=== PATIENT | male | born 1930 | race Caucasian/White ===

== ENCOUNTER 2016-12-19 15:30 | Inpatient (IN) | payer MEDICARE, OTHER ==
[~2016-12-19] VITALS: Ht 162.6 cm; Wt 68.5 kg
[2016-12-19] VITALS (7 sets, daily range): BP systolic 147–188; BP diastolic 90–111
--- NOTE | 2016-12-19 16:06 | Emergency Room Report ---
History of Present Illness General Chief Complaint: Chest Pain Source: Patient, Family Member, EMS Present Illness HPI Patient fell 2 nights ago. He bruised the left side of his lower chest. He's been unable to sleep for 3 days now. They gave him a dose of benzodiazepines last night however this didn't help him sleep. He has not been eating well. He 's been weak. He is complaining about chest pain today. The patient has colon cancer. He had laparoscopic surgery in August. This was complicated by needing to be intubated and also psychosis in the hospital. They claim that there is no evidence of tumor spread at this time. The family denies Parkinson's. Also denies any liver disease. The patient's had generalized weakness. The daughter denies fevers, cough, nausea, vomiting, diarrhea. Patient suffers from dementia and therefore further history is not available. Allergies: Coded Allergies: No Known Allergies (Unverified , 12/19/16) Patient History Limited by: medical condition Past Medical History: see triage record Social History Narrative with daughter Reviewed Nursing Documentation: PMH: Agreed, PSxH: Agreed Nursing Documentation-PMH Hx Cardiac Problems: Yes Hx Hypertension: Yes Review of Systems All Other Systems: limited Physical Exam Vital Signs Date Time Temp Pulse Resp B/P (MAP) Pulse Ox O2 Delivery O2 Flow Rate FiO2 12/19/16 15:25 108 16 152/88 100 Room Air Sp02 EP Interpretation: reviewed, normal General Appearance: no apparent distress, alert - but eyes closed and slow to resond, Chronically Ill Head: other Eyes: left eye PERRL - R eye cataract surg, bilateral eye normal inspection ENT: moist mucus membranes Neck: full range of motion, supple, no bony tend Respiratory: lungs clear, normal breath sounds, other - posterior tenderness Cardiovascular #1: regular rate, rhythm Cardiovascular #2: 2+ radial (R) Gastrointestinal: normal inspection, normal bowel sounds, non tender, no mass, non-distended Genitourinary: CVA tenderness (L) - - more rib Musculoskeletal: normal range of motion, no calf tenderness, pelvis stable Neurologic: responsive, DTRs symmetric, Babinski, other - cogwheeling vs asterixis Psychiatric: depressed affect, other Skin: warm/dry, other - sallo Medical Decision Making Diagnostic Impression: Primary Impression: Chest pain Qualified Codes: R07.9 - Chest pain, unspecified Additional Impressions: Left rib fracture Qualified Codes: S22.32XA - Fracture of one rib, left side, initial encounter for closed fracture Altered level of consciousness Falling episodes ER Course Patient presents with chest pain post fall. Differential includes chest contusion, rib fracture, acute coronary syndrome, syncope, occult infection amongst others. The patient also is altered and has evidence of asterixis vs cogwheeling. Need to evaluate the patient with EKG, CT head, chest x-ray and labs including ammonia. The patient is too weak to be treated at home and will be admitted to the hospital. Labs significant for normal WBC and lytes. Ammonia was reported as normal. CT with white matter changes. No bleed. CXR and abd unremarkable. Await urine. With the fact that the patient has cogwheeling and ammonia is negative the suggested there might be early Parkinson's or Parkinson's related to dementia. The family is requesting a psychiatric evaluation the hospital and I have asked Dr. Najera for neurologic evaluation also. The patient is admitted to telemetry under the care of Dr. Najera. Laboratory Tests Test 12/19/16 15:48 12/19/16 17:59 White Blood Count 8.9 K/UL (4.8-10.8) Red Blood Count 3.96 M/UL (4.70-6.10) L Hemoglobin 12.4 G/DL (14.2-18.0) L Hematocrit 39.5 % (42.0-52.0) L Mean Corpuscular Volume 100 FL (80-99) H Mean Corpuscular Hemoglobin 31.4 PG (27.0-31.0) H Mean Corpuscular Hemoglobin Concent 31.5 G/DL (32.0-36.0) L Red Cell Distribution Width 13.2 % (11.6-14.8) Platelet Count 142 K/UL (150-450) L Mean Platelet Volume 7.2 FL (6.5-10.1) Neutrophils (%) (Auto) 74.6 % (45.0-75.0) Lymphocytes (%) (Auto) 13.5 % (20.0-45.0) L Monocytes (%) (Auto) 10.5 % (1.0-10.0) H Eosinophils (%) (Auto) 0.7 % (0.0-3.0) Basophils (%) (Auto) 0.6 % (0.0-2.0) Prothrombin Time 9.8 SEC (9.30-11.50) Prothrombin Time INR 0.9 (0.9-1.1) PTT 25 SEC (23-33) Sodium Level 139 mEQ/L (135-145) Potassium Level 3.8 mEQ/L (3.4-4.9) Chloride Level 102 mEQ/L (98-107) Carbon Dioxide Level 23 mEQ/L (20-30) Anion Gap 14 (5-15) Blood Urea Nitrogen 19 mg/dL (7-23) Creatinine 1.2 mg/dL (0.7-1.2) Estimate Glomerular Filtration Rate mL/min (>60) Glucose Level 135 mg/dL (74-106) H Calcium Level 9.7 mg/dL (8.6-10.2) Total Bilirubin 0.6 mg/dL (0.0-1.2) Aspartate Amino Transferase (AST) 18 U/L (5-40) Alanine Aminotransferase (ALT) 11 U/L (3-41) Alkaline Phosphatase 86 U/L (40-129) Total Creatine Kinase 30 U/L (38-174) L Troponin I < 0.30 ng/mL (<=0.30) Pro-B-Type Natriuretic Peptide 1753 pg/mL (0-450) H Total Protein 7.3 g/dL (6.6-8.7) Albumin 3.6 g/dL (3.5-5.2) Globulin 3.7 g/dL Albumin/Globulin Ratio 0.9 (1.0-2.7) L Ammonia 12 umol/L (16-60) L EKG Diagnostic Results Rate: tachycardiac ST Segments: no acute changes Rhythm Strip Diag. Results EP Interpretation: yes Rhythm: no PVC's, no ectopy, other - ST Chest X-Ray Diagnostic Results Chest X-Ray Diagnostic Results : Chest X-Ray Ordered: Yes # of Views/Limited/Complete: 2 View Indication: Chest Pain Interpretation: no consolidation, no effusion, no pneumothorax, no acute cardiopulmonary disease Impression: Other - L rib fx Interpreting ER Provider: Electronically signed by Palomo Lopez MD CT/MRI/US Diagnostic Results CT/MRI/US Diagnostic Results : Imaging Test Ordered: head Impression white matter changes Status: improved Disposition: ADMITTED INPATIENT Condition: Serious Palomo Lopez M.D. Dec 19, 2016 16:06
[2016-12-19 16:07] LABS: BASOPHILS % (AUTO) 0.6 % (0.0-2.0); EOSINOPHILS % (AUTO) 0.7 % (0.0-3.0); LYMPHOCYTES % (AUTO) 13.5 % (20.0-45.0); MEAN CORPUSCULAR HEMOGLOBIN 31.4 PG (27.0-31.0); MEAN CORPUSCULAR HGB CONC 31.5 G/DL (32.0-36.0); MEAN CORPUSCULAR VOLUME 100 FL (80-99); MEAN PLATELET VOLUME 7.2 FL (6.5-10.1); MONOCYTES % (AUTO) 10.5 % (1.0-10.0); NEUTROPHILS % (AUTO) 74.6 % (45.0-75.0); PLATELET COUNT 142 K/UL (150-450); RED BLOOD COUNT 3.96 M/UL (4.70-6.10); RED CELL DISTRIBUTION WIDTH 13.2 % (11.6-14.8); WHITE BLOOD COUNT 8.9 K/UL (4.8-10.8)
[2016-12-19 16:13] LABS: INR 0.9 (0.9-1.1); PROTHROMBIN TIME 9.8 SEC (9.30-11.50)
[2016-12-19 16:17] LABS: ALANINE AMINOTRANSFERASE 11 U/L (3-41); ALBUMIN/GLOBULIN RATIO 0.9 (1.0-2.7); ANION GAP 14 (5-15); ASPARTATE AMINO TRANSFERASE 18 U/L (5-40); CALCIUM 9.7 mg/dL (8.6-10.2); CARBON DIOXIDE 23 mEQ/L (20-30); CHLORIDE 102 mEQ/L (98-107); CREATININE 1.2 mg/dL (0.7-1.2); HEMOLYSIS 11; POTASSIUM 3.8 mEQ/L (3.4-4.9); SODIUM 139 mEQ/L (135-145); TOTAL PROTEIN 7.3 g/dL (6.6-8.7)
[2016-12-19 16:19] LABS: TROPONIN I < 0.30 ng/mL (<=0.30)
[2016-12-19] MEDS ORDERED: VESICARE5 MG ORAL (17:22)
[2016-12-19] MEDS ORDERED: CRESTOR40 MG ORAL (17:22)
[2016-12-19] MEDS ORDERED: RAPAFLO-PATIENT'1 EA PO (17:22)
[2016-12-19] MEDS ORDERED: PROSCAR5 MG ORAL (17:22)
[2016-12-19] MEDS ORDERED: COMBIGAN EYE DRO5 ML OP (17:24)
[2016-12-19] MEDS ORDERED: NITROSTAT0.4 M2 SL (17:24)
[2016-12-19] MEDS ORDERED: VITAMIN D400 INTLU ORAL (17:24)
[2016-12-19] MEDS ORDERED: SERTRALINE HCL25 MG ORAL (17:24)
[2016-12-19] MEDS ORDERED: METFORMIN HCL500 M1 ORAL (17:24)
[2016-12-19] MEDS ORDERED: NEXIUM40 MG ORAL (17:24)
[2016-12-19] MEDS ORDERED: LEVOTHYROXINE75 MCG ORAL (17:24)
[2016-12-19] MEDS ORDERED: KLONOPIN0.5 MG ORAL (17:24)
[2016-12-19] MEDS ORDERED: ASPIR 8181 MG ORAL (17:26)
[2016-12-19] MEDS ORDERED: HYDROXYZINE HCL25 M1 PO (17:26)
[2016-12-19] MEDS ORDERED: MIDODRINE HCL2.5 MG ORAL (17:26)
[2016-12-19] MEDS ORDERED: SLOW RELEASE I160 MG PO (17:26)
[2016-12-19] MEDS ORDERED: ZOLPIDEM TARTRA10 MG ORAL (17:26)
[2016-12-19] MEDS ORDERED: AZOPT10 ML OP (17:26)
[2016-12-19] MEDS ORDERED: LIDEX15 GM TOPIC (17:26)
[2016-12-19] MEDS ORDERED: Nitroglycerin Subl 0.4mg tab (Bottle Of 25) SL SCH (18:00)
[2016-12-19] MEDS ORDERED: Enalaprilat 2.5mg/2ml Inj IV PRN (18:00)
[2016-12-19] MEDS ORDERED: Morphine Sulfate 2mg/ml Inj IVP PRN (18:00)
[2016-12-19] MEDS ORDERED: Diltiazem 25mg/5ml IV PRN (18:00)
[2016-12-19] MEDS ORDERED: DuoNeb 0.5-3(2.5)mg/3ml neb HHN PRN (18:00)
[2016-12-19] MEDS ORDERED: Ketorolac 30mg Inj IV PRN (18:00)
[2016-12-19] MEDS ORDERED: Miralax 17gm pkt ORAL PRN (18:00)
[2016-12-19] MEDS ORDERED: Nitroglycerin Subl 0.4mg tab (Bottle Of 25) SL PRN (18:00)
[2016-12-19] MEDS: Heparin 5000 units/ml inj SUBQ SCH (22:01)
[2016-12-19] MEDS ORDERED: B COMPLEX1 EACH ORAL (23:39)
[2016-12-20 03:43] VITALS: BP 150/107
[2016-12-20 07:04] LABS: BASOPHILS % (AUTO) 0.6 % (0.0-2.0); EOSINOPHILS % (AUTO) 1.8 % (0.0-3.0); LYMPHOCYTES % (AUTO) 20.1 % (20.0-45.0); MEAN CORPUSCULAR HEMOGLOBIN 33.3 PG (27.0-31.0); MEAN CORPUSCULAR HGB CONC 33.6 G/DL (32.0-36.0); MEAN CORPUSCULAR VOLUME 99 FL (80-99); MEAN PLATELET VOLUME 7.6 FL (6.5-10.1); MONOCYTES % (AUTO) 9.6 % (1.0-10.0); NEUTROPHILS % (AUTO) 67.9 % (45.0-75.0); PLATELET COUNT 132 K/UL (150-450); RED BLOOD COUNT 3.53 M/UL (4.70-6.10); RED CELL DISTRIBUTION WIDTH 12.8 % (11.6-14.8); WHITE BLOOD COUNT 6.3 K/UL (4.8-10.8)
[2016-12-20 07:12] LABS: PROTHROMBIN TIME 10.1 SEC (9.30-11.50)
[2016-12-20 07:34] LABS: CHOLESTEROL/HDL RATIO 1.8 (3.3-4.4); CRP QUANT 14.2 mg/dL (< 0.5)
[2016-12-20 07:35] LABS: TROPONIN I < 0.30 ng/mL (<=0.30)
[2016-12-20 07:47] LABS: THYROID STIMULATING HORMONE 2.15 uIU/mL (0.300-4.500)
[2016-12-20 07:55] VITALS: BP 127/84
[2016-12-20] MEDS: clonazePAM 0.5mg tab ORAL SCH ×2 (09:00→09:24)
[2016-12-20] MEDS: Aspirin Baby 81mg ORAL SCH (09:24)
[2016-12-20] MEDS: Sertraline 50mg tab ORAL SCH (09:24)
[2016-12-20] MEDS: Heparin 5000 units/ml inj SUBQ SCH ×2 (09:25→20:41)
--- NOTE | 2016-12-20 10:54 | Diagnostic Imaging Report ---
Indication: Altered level of consciousness Technique: Contiguous 5 mm thick transaxial imaging of the head obtained in a Siemens Sensation [address] scanner. Soft tissue and bone windows generated. Total Dose length Product (DLP): [address] Dose Index Volume (CTDIvol): 70.38, 0.15 mGy Comparison: none Findings: There is moderate prominence of the ventricles, basal cisterns, and cerebral sulci consistent with atrophy. Moderate, nonspecific, white matter hypoattenuation is noted throughout the brain consistent with chronic small vessel disease. There is no midline shift, edema, acute hemorrhage, mass effect, or abnormal extra-axial fluid collections. Bones and extra osseous soft tissues are unremarkable. Impression: No acute intracranial bleed, mass effect or edema. Moderate atrophy of the brain. Evidence of chronic small vessel disease involving white matter tracts. The CT scanner at [facility] is accredited by the [employer] and the scans are performed using dose optimization techniques as appropriate to a performed exam including Automatic Exposure control.
[2016-12-20 11:22] VITALS: BP 147/81
--- NOTE | 2016-12-20 11:23 | History and Physical ---
History of Present Illness General Date patient seen: Dec 19, 2016 Reason for Hospitalization: Chest Pain Present Illness HPI 86 year old male with hx of recent colon cancer, s/p resection, HTN, DM, presented to [facility] by paramedics for increasing ALOC, p alejandra fell 2 nights ago. He's been unable to sleep for 3 days now. They gave him a dose of benzodiazepines last night however this didn't help him sleep. He is not eating well. She's been weak. He is complaining about chest pain today. He is admitted to telemetry for recurrent fall and ALOC. The Ct of head in ER was negative. Allergies: Coded Allergies: No Known Allergies (Unverified , 12/19/16) Medication History Scheduled Aspirin* (Aspir 81*), 81 MG ORAL BID, (Reported) Brimonidine Tartrate/Timolol (Combigan Eye Drops), 5 ML OP BID, (Reported) Brinzolamide (Azopt), 10 ML OP BID, (Reported) Clonazepam* (Klonopin*), 0.5 MG ORAL DAILY, (Reported) Esomeprazole Magnesium (Nexium), 40 MG ORAL DAILY, (Reported) Ferrous Sulfate (Slow Release Iron), 160 MG PO DAILY, (Reported) Finasteride* (Proscar*), 0.5 ML ORAL DAILY, (Reported) Levothyroxine Sodium* (Levothyroxine Sodium*), 75 MCG ORAL DAILY, (Reported) Metformin Hcl* (Metformin Hcl*), 500 MG ORAL TWICE A DAY, (Reported) Midodrine* (Proamatine*), 2.5 MG ORAL BID, (Reported) Nitroglycerin (Nitrostat), 0.4 MG SL PRN, (Reported) Rosuvastatin Calcium* (Crestor*), 40 MG ORAL DAILY, (Reported) Sertraline Hcl* (Sertraline Hcl*), 50 MG ORAL DAILY, (Reported) Silodusin (Rapaflo), 1 EA PO DAILY, (Reported) Solifenacin Succinate* (Vesicare*), 5 MG ORAL DAILY, (Reported) Vitamin B Complex (B Complex), 1 TAB ORAL DAILY, (Reported) Vitamin D (Vitamin D3), 2,000 UNITS ORAL DAILY, (Reported) Scheduled PRN Fluocinonide* (Lidex*), 1 APPLIC TOPIC PRN PRN for Itching, (Reported) Hydroxyzine Hcl (Hydroxyzine Hcl), 25 MG PO BID PRN for Itching, (Reported) Zolpidem Tartrate* (Zolpidem Tartrate*), 10 MG ORAL BEDTIME PRN for Insomnia, ( Reported) Patient History Healthcare decision maker Resuscitation status Full Code Advanced Directive on File Past Medical/Surgical History Past Medical/Surgical History: (1) Colon cancer (2) Hypertension (3) Diabetes (4) Diabetes mellitus Review of Systems Constitutional: Reports: malaise, weakness Eye: Reports: no symptoms Cardiovascular: Reports: chest pain Gastrointestinal: Reports: no symptoms Genitourinary: Reports: no symptoms Physical Exam General Appearance: WD/WN Lines, tubes and drains: peripheral HEENT: normocephalic, atraumatic Neck: non-tender, normal alignment Respiratory/Chest: chest wall non-tender, lungs clear Cardiovascular/Chest: normal peripheral pulses, normal rate Abdomen: normal bowel sounds, soft Genitourinary/Rectal: normal genital exam, normal rectal exam Extremities: normal range of motion, non-tender 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 Last 24 Hour Vital Signs Date Time Temp Pulse Resp B/P (MAP) Pulse Ox O2 Delivery O2 Flow Rate FiO2 12/20/16 07:55 96.8 77 20 127/84 95 Room Air 12/20/16 07:48 77 20 Room Air 12/20/16 04:00 85 12/20/16 03:43 96.8 82 16 150/107 96 Room Air 12/20/16 00:15 79 12/19/16 23:46 96.3 85 16 153/111 95 Room Air 12/19/16 20:30 96.4 89 16 148/95 95 Room Air 12/19/16 20:30 91 12/19/16 20:04 90 20 Room Air 21 12/19/16 19:46 91 20 155/98 95 Room Air 12/19/16 19:30 91 20 155/98 95 Room Air 12/19/16 18:40 95 20 188/93 96 Room Air 12/19/16 17:30 96 20 147/90 98 Room Air 12/19/16 17:00 97 20 159/108 97 Room Air 12/19/16 16:10 105 22 166/104 96 Room Air 12/19/16 15:55 102 16 12/19/16 15:25 108 16 152/88 100 Room Air Intake and Output 12/20/16 12/21/16 19:00 07:00 # Voids 1 Laboratory Tests Test 12/19/16 15:48 12/19/16 17:59 12/20/16 06:25 White Blood Count 8.9 K/UL (4.8-10.8) 6.3 K/UL (4.8-10.8) Red Blood Count 3.96 M/UL (4.70-6.10) L 3.53 M/UL (4.70-6.10) L Hemoglobin 12.4 G/DL (14.2-18.0) L 11.8 G/DL (14.2-18.0) L Hematocrit 39.5 % (42.0-52.0) L 35.0 % (42.0-52.0) L Mean Corpuscular Volume 100 FL (80-99) H 99 FL (80-99) Mean Corpuscular Hemoglobin 31.4 PG (27.0-31.0) H 33.3 PG (27.0-31.0) H Mean Corpuscular Hemoglobin Concent 31.5 G/DL (32.0-36.0) L 33.6 G/DL (32.0-36.0) Red Cell Distribution Width 13.2 % (11.6-14.8) 12.8 % (11.6-14.8) Platelet Count 142 K/UL (150-450) L 132 K/UL (150-450) L Mean Platelet Volume 7.2 FL (6.5-10.1) 7.6 FL (6.5-10.1) Neutrophils (%) (Auto) 74.6 % (45.0-75.0) 67.9 % (45.0-75.0) Lymphocytes (%) (Auto) 13.5 % (20.0-45.0) L 20.1 % (20.0-45.0) Monocytes (%) (Auto) 10.5 % (1.0-10.0) H 9.6 % (1.0-10.0) Eosinophils (%) (Auto) 0.7 % (0.0-3.0) 1.8 % (0.0-3.0) Basophils (%) (Auto) 0.6 % (0.0-2.0) 0.6 % (0.0-2.0) Prothrombin Time 9.8 SEC (9.30-11.50) 10.1 SEC (9.30-11.50) Prothromb Time International Ratio 0.9 (0.9-1.1) 1.0 (0.9-1.1) Activated Partial Thromboplast Time 25 SEC (23-33) 26 SEC (23-33) Sodium Level 139 mEQ/L (135-145) Potassium Level 3.8 mEQ/L (3.4-4.9) Chloride Level 102 mEQ/L (98-107) Carbon Dioxide Level 23 mEQ/L (20-30) Anion Gap 14 (5-15) Blood Urea Nitrogen 19 mg/dL (7-23) Creatinine 1.2 mg/dL (0.7-1.2) Estimat Glomerular Filtration Rate mL/min (>60) Glucose Level 135 mg/dL (74-106) H Calcium Level 9.7 mg/dL (8.6-10.2) Total Bilirubin 0.6 mg/dL (0.0-1.2) Aspartate Amino Transf (AST/SGOT) 18 U/L (5-40) Alanine Aminotransferase (ALT/SGPT) 11 U/L (3-41) Alkaline Phosphatase 86 U/L (40-129) Total Creatine Kinase 30 U/L (38-174) L Troponin I < 0.30 ng/mL (<=0.30) < 0.30 ng/mL (<=0.30) Pro-B-Type Natriuretic Peptide 1753 pg/mL (0-450) H Total Protein 7.3 g/dL (6.6-8.7) Albumin 3.6 g/dL (3.5-5.2) Globulin 3.7 g/dL Albumin/Globulin Ratio 0.9 (1.0-2.7) L Ammonia 12 umol/L (16-60) L C-Reactive Protein, Quantitative 14.2 mg/dL (< 0.5) H Triglycerides Level 96 mg/dL (< 150) Cholesterol Level 108 mg/dL (< 200) LDL Cholesterol 28 mg/dL (60-99) L HDL Cholesterol 61 mg/dL (> 60) H Cholesterol/HDL Ratio 1.8 (3.3-4.4) L Thyroid Stimulating Hormone (TSH) 2.150 uIU/mL (0.300-4.500) Height (Feet): 5 Height (Inches): 4.00 Weight (Pounds): 150 Medications Current Medications Medications (Trade) Dose Ordered Sig/Edgar Route PRN Reason Start Time Stop Time Status Last Admin Dose Admin Acetaminophen (Tylenol) 650 mg Q4H PRN ORAL FEVER 12/19/16 18:00 01/18/17 17:59 Albuterol/ Ipratropium (DuoNeb 0.5-3(2.5)mg/3ml) 3 ml Q4H PRN HHN Shortness of Breath 12/19/16 18:00 12/24/16 17:59 Aspirin (ASA) 162 mg DAILY ORAL 12/20/16 09:00 01/19/17 08:59 12/20/16 09:24 Clonazepam (KlonoPIN) 0.5 mg DAILY ORAL 12/20/16 09:00 12/27/16 08:59 Diltiazem HCl (Cardizem) 10 mg Q1H PRN IV heart rate more than 120, 12/19/16 18:00 01/18/17 17:59 Enalaprilat (Vasotec) 2.5 mg Q6H PRN IV sbp more than 160 12/19/16 18:00 01/18/17 17:59 Heparin Sodium (Porcine) (Heparin 5000 units/ml) 5,000 units EVERY 12 HOURS SUBQ 12/19/16 21:00 01/18/17 20:59 12/20/16 09:25 Ketorolac Tromethamine (Toradol 30mg) 30 mg Q6H PRN IV moderate pain (4-6) 12/19/16 18:00 12/24/16 17:59 12/20/16 05:49 Levothyroxine Sodium (Synthroid) 75 mcg ACBREAKFAST ORAL 12/20/16 06:30 01/19/17 06:29 Morphine Sulfate (Morphine Sulfate) 2 mg Q4H PRN IVP severe Pain (Pain Scale 7-10) 12/19/16 18:00 12/26/16 17:59 12/19/16 18:49 Nitroglycerin (Ntg) 0.4 mg Q5M PRN SL Prn Chest Pain 12/19/16 18:00 01/18/17 17:59 Ondansetron HCl (Zofran) 4 mg Q6H PRN IVP Nausea & Vomiting 12/19/16 18:00 01/18/17 17:59 12/19/16 18:49 Pantoprazole (Protonix) 40 mg DAILY ORAL 12/20/16 09:00 01/19/17 08:59 12/20/16 09:24 Polyethylene Glycol (Miralax) 17 gm DAILYPRN PRN ORAL Constipation 12/19/16 18:00 01/18/17 17:59 Sertraline HCl (Zoloft) 50 mg DAILY ORAL 12/20/16 09:00 01/19/17 08:59 12/20/16 09:24 Temazepam (Restoril) 15 mg HSPRN PRN ORAL Insomnia 12/19/16 18:00 12/26/16 17:59 Assessment/Plan Problem List: (1) Altered level of consciousness ICD Codes: R40.4 - Transient alteration of awareness SNOMED: 5888736 (2) Costochondritis ICD Codes: M94.0 - Chondrocostal junction syndrome [Tietze] SNOMED: 65017089 (3) Hypertension ICD Codes: I10 - Essential (primary) hypertension SNOMED: 67666104 (4) Colon cancer ICD Codes: C18.9 - Malignant neoplasm of colon, unspecified SNOMED: 121150670 (5) Diabetes mellitus ICD Codes: E11.9 - Type 2 diabetes mellitus without complications SNOMED: 16727164 (6) Left rib fracture ICD Codes: S22.32XA - Fracture of one rib, left side, initial encounter for closed fracture SNOMED: 81277469 (7) At high risk for aspiration ICD Codes: Z91.89 - Other specified personal risk factors, not elsewhere classified SNOMED: 650786610 (8) Advanced dementia ICD Codes: F03.90 - Unspecified dementia without behavioral disturbance SNOMED: 29693514 Assessment/Plan telemetry pt/ot swallow evaluation cardiology to see psych and neuro evaluaiton pt/ot RODRIGUEZ DEL RIO Dec 20, 2016 11:23
--- NOTE | 2016-12-20 11:26 | Pulmonology Progress Note ---
Assessment/Plan Problems: (1) Altered level of consciousness (2) Costochondritis (3) Hypertension (4) Colon cancer (5) Diabetes mellitus (6) Left rib fracture (7) At high risk for aspiration (8) Advanced dementia Assessment/Plan all reviewed d/w daughter at the bed site check CEA pain management swallow study pending pt/ot dvt prophylaxis Subjective ROS Limited/Unobtainable: No Constitutional: Reports: no symptoms HEENT: Repors: no symptoms Respiratory: Reports: no symptoms Allergies: Coded Allergies: No Known Allergies (Unverified , 12/19/16) Objective Last 24 Hour Vital Signs Date Time Temp Pulse Resp B/P (MAP) Pulse Ox O2 Delivery O2 Flow Rate FiO2 12/20/16 11:22 96.9 69 20 147/81 98 Room Air 12/20/16 07:55 96.8 77 20 127/84 95 Room Air 12/20/16 07:48 77 20 Room Air 21 12/20/16 04:00 85 12/20/16 03:43 96.8 82 16 150/107 96 Room Air 12/20/16 00:15 79 12/19/16 23:46 96.3 85 16 153/111 95 Room Air 12/19/16 20:30 96.4 89 16 148/95 95 Room Air 12/19/16 20:30 91 12/19/16 20:04 90 20 Room Air 21 12/19/16 19:46 91 20 155/98 95 Room Air 12/19/16 19:30 91 20 155/98 95 Room Air 12/19/16 18:40 95 20 188/93 96 Room Air 12/19/16 17:30 96 20 147/90 98 Room Air 12/19/16 17:00 97 20 159/108 97 Room Air 12/19/16 16:10 105 22 166/104 96 Room Air 12/19/16 15:55 102 16 12/19/16 15:25 108 16 152/88 100 Room Air Intake and Output 12/20/16 12/21/16 19:00 07:00 # Voids 1 General Appearance: WD/WN HEENT: normocephalic, atraumatic Respiratory/Chest: chest wall non-tender, lungs clear Cardiovascular: normal peripheral pulses, normal rate Abdomen: normal bowel sounds, soft, non tender Extremities: no cyanosis 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 Lymphatic: no neck adenopathy, no groin adenopathy Laboratory Tests 12/19/16 15:48: White Blood Count 8.9, Red Blood Count 3.96L, Hemoglobin 12.4L, Hematocrit 39.5L , Mean Corpuscular Volume 100H, Mean Corpuscular Hemoglobin 31.4H, Mean Corpuscular Hemoglobin Concent 31.5L, Red Cell Distribution Width 13.2, Platelet Count 142L, Mean Platelet Volume 7.2, Neutrophils (%) (Auto) 74.6, Lymphocytes (%) (Auto) 13.5L, Monocytes (%) (Auto) 10.5H, Eosinophils (%) (Auto ) 0.7, Basophils (%) (Auto) 0.6, Prothrombin Time 9.8, Prothromb Time International Ratio 0.9, Activated Partial Thromboplast Time 25, Sodium Level 139, Potassium Level 3.8, Chloride Level 102, Carbon Dioxide Level 23, Anion Gap 14, Blood Urea Nitrogen 19, Creatinine 1.2, Estimat Glomerular Filtration Rate , Glucose Level 135H, Calcium Level 9.7, Total Bilirubin 0.6, Aspartate Amino Transf (AST/SGOT) 18, Alanine Aminotransferase (ALT/SGPT) 11, Alkaline Phosphatase 86, Total Creatine Kinase 30L, Troponin I < 0.30, Pro-B-Type Natriuretic Peptide 1753H, Total Protein 7.3, Albumin 3.6, Globulin 3.7, Albumin /Globulin Ratio 0.9L 12/19/16 17:59: Ammonia 12L 12/20/16 06:25: White Blood Count 6.3, Red Blood Count 3.53L, Hemoglobin 11.8L, Hematocrit 35.0L , Mean Corpuscular Volume 99, Mean Corpuscular Hemoglobin 33.3H, Mean Corpuscular Hemoglobin Concent 33.6, Red Cell Distribution Width 12.8, Platelet Count 132L, Mean Platelet Volume 7.6, Neutrophils (%) (Auto) 67.9, Lymphocytes ( %) (Auto) 20.1, Monocytes (%) (Auto) 9.6, Eosinophils (%) (Auto) 1.8, Basophils (%) (Auto) 0.6, Prothrombin Time 10.1, Prothromb Time International Ratio 1.0, Activated Partial Thromboplast Time 26, Troponin I < 0.30, C-Reactive Protein, Quantitative 14.2H, Triglycerides Level 96, Cholesterol Level 108, LDL Cholesterol 28L, HDL Cholesterol 61H, Cholesterol/HDL Ratio 1.8L, Thyroid Stimulating Hormone (TSH) 2.150 Current Medications Medications (Trade) Dose Ordered Sig/Edgar Route PRN Reason Start Time Stop Time Status Last Admin Dose Admin Acetaminophen (Tylenol) 650 mg Q4H PRN ORAL FEVER 12/19/16 18:00 01/18/17 17:59 Albuterol/ Ipratropium (DuoNeb 0.5-3(2.5)mg/3ml) 3 ml Q4H PRN HHN Shortness of Breath 12/19/16 18:00 12/24/16 17:59 Aspirin (ASA) 162 mg DAILY ORAL 12/20/16 09:00 01/19/17 08:59 12/20/16 09:24 Clonazepam (KlonoPIN) 0.5 mg DAILY ORAL 12/20/16 09:00 12/27/16 08:59 Diltiazem HCl (Cardizem) 10 mg Q1H PRN IV heart rate more than 120, 12/19/16 18:00 01/18/17 17:59 Enalaprilat (Vasotec) 2.5 mg Q6H PRN IV sbp more than 160 12/19/16 18:00 01/18/17 17:59 Heparin Sodium (Porcine) (Heparin 5000 units/ml) 5,000 units EVERY 12 HOURS SUBQ 12/19/16 21:00 01/18/17 20:59 12/20/16 09:25 Ketorolac Tromethamine (Toradol 30mg) 30 mg Q6H PRN IV moderate pain (4-6) 12/19/16 18:00 12/24/16 17:59 12/20/16 05:49 Levothyroxine Sodium (Synthroid) 75 mcg ACBREAKFAST ORAL 12/20/16 06:30 01/19/17 06:29 Morphine Sulfate (Morphine Sulfate) 2 mg Q4H PRN IVP severe Pain (Pain Scale 7-10) 12/19/16 18:00 12/26/16 17:59 12/19/16 18:49 Nitroglycerin (Ntg) 0.4 mg Q5M PRN SL Prn Chest Pain 12/19/16 18:00 01/18/17 17:59 Ondansetron HCl (Zofran) 4 mg Q6H PRN IVP Nausea & Vomiting 12/19/16 18:00 01/18/17 17:59 12/19/16 18:49 Pantoprazole (Protonix) 40 mg DAILY ORAL 12/20/16 09:00 01/19/17 08:59 12/20/16 09:24 Polyethylene Glycol (Miralax) 17 gm DAILYPRN PRN ORAL Constipation 12/19/16 18:00 01/18/17 17:59 Sertraline HCl (Zoloft) 50 mg DAILY ORAL 12/20/16 09:00 01/19/17 08:59 12/20/16 09:24 Temazepam (Restoril) 15 mg HSPRN PRN ORAL Insomnia 12/19/16 18:00 12/26/16 17:59 RODRIGUEZ DEL RIO Dec 20, 2016 11:26
--- NOTE | 2016-12-20 11:32 | Diagnostic Imaging Report ---
Indication: Abdominal pain Comparison: None Single view of the abdomen obtained Surgical sutures noted in the right side of abdomen. Bowel gas pattern is nonspecific. Bones are osteopenic. Vascular calcifications are present. Impression: No acute findings
--- NOTE | 2016-12-20 11:32 | Diagnostic Imaging Report ---
Indication: Dyspnea Comparison: None A single view chest radiograph was obtained. Findings: No definite infiltrate or pulmonary vascular congestion identified. Mild left basilar atelectasis demonstrated. Sternotomy noted. The heart is enlarged. The aorta is mildly enlarged consistent with atherosclerotic vascular disease. The bones are osteopenic. Impression: No acute disease
--- NOTE | 2016-12-20 13:08 | Cardiology Progress Note ---
Assessment/Plan Assessment/Plan [id number] Objective Last 24 Hour Vital Signs Date Time Temp Pulse Resp B/P (MAP) Pulse Ox O2 Delivery O2 Flow Rate FiO2 12/20/16 11:22 96.9 69 20 147/81 98 Room Air 12/20/16 07:55 96.8 77 20 127/84 95 Room Air 12/20/16 07:48 77 20 Room Air 21 12/20/16 04:00 85 12/20/16 03:43 96.8 82 16 150/107 96 Room Air 12/20/16 00:15 79 12/19/16 23:46 96.3 85 16 153/111 95 Room Air 12/19/16 20:30 96.4 89 16 148/95 95 Room Air 12/19/16 20:30 91 12/19/16 20:04 90 20 Room Air 21 12/19/16 19:46 91 20 155/98 95 Room Air 12/19/16 19:30 91 20 155/98 95 Room Air 12/19/16 18:40 95 20 188/93 96 Room Air 12/19/16 17:30 96 20 147/90 98 Room Air 12/19/16 17:00 97 20 159/108 97 Room Air 12/19/16 16:10 105 22 166/104 96 Room Air 12/19/16 15:55 102 16 12/19/16 15:25 108 16 152/88 100 Room Air Intake and Output 12/20/16 12/21/16 19:00 07:00 # Voids 1 Laboratory Tests Test 12/19/16 15:48 12/19/16 17:59 12/20/16 06:25 White Blood Count 8.9 K/UL (4.8-10.8) 6.3 K/UL (4.8-10.8) Red Blood Count 3.96 M/UL (4.70-6.10) L 3.53 M/UL (4.70-6.10) L Hemoglobin 12.4 G/DL (14.2-18.0) L 11.8 G/DL (14.2-18.0) L Hematocrit 39.5 % (42.0-52.0) L 35.0 % (42.0-52.0) L Mean Corpuscular Volume 100 FL (80-99) H 99 FL (80-99) Mean Corpuscular Hemoglobin 31.4 PG (27.0-31.0) H 33.3 PG (27.0-31.0) H Mean Corpuscular Hemoglobin Concent 31.5 G/DL (32.0-36.0) L 33.6 G/DL (32.0-36.0) Red Cell Distribution Width 13.2 % (11.6-14.8) 12.8 % (11.6-14.8) Platelet Count 142 K/UL (150-450) L 132 K/UL (150-450) L Mean Platelet Volume 7.2 FL (6.5-10.1) 7.6 FL (6.5-10.1) Neutrophils (%) (Auto) 74.6 % (45.0-75.0) 67.9 % (45.0-75.0) Lymphocytes (%) (Auto) 13.5 % (20.0-45.0) L 20.1 % (20.0-45.0) Monocytes (%) (Auto) 10.5 % (1.0-10.0) H 9.6 % (1.0-10.0) Eosinophils (%) (Auto) 0.7 % (0.0-3.0) 1.8 % (0.0-3.0) Basophils (%) (Auto) 0.6 % (0.0-2.0) 0.6 % (0.0-2.0) Prothrombin Time 9.8 SEC (9.30-11.50) 10.1 SEC (9.30-11.50) Prothromb Time International Ratio 0.9 (0.9-1.1) 1.0 (0.9-1.1) Activated Partial Thromboplast Time 25 SEC (23-33) 26 SEC (23-33) Sodium Level 139 mEQ/L (135-145) Potassium Level 3.8 mEQ/L (3.4-4.9) Chloride Level 102 mEQ/L (98-107) Carbon Dioxide Level 23 mEQ/L (20-30) Anion Gap 14 (5-15) Blood Urea Nitrogen 19 mg/dL (7-23) Creatinine 1.2 mg/dL (0.7-1.2) Estimat Glomerular Filtration Rate mL/min (>60) Glucose Level 135 mg/dL (74-106) H Calcium Level 9.7 mg/dL (8.6-10.2) Total Bilirubin 0.6 mg/dL (0.0-1.2) Aspartate Amino Transf (AST/SGOT) 18 U/L (5-40) Alanine Aminotransferase (ALT/SGPT) 11 U/L (3-41) Alkaline Phosphatase 86 U/L (40-129) Total Creatine Kinase 30 U/L (38-174) L Troponin I < 0.30 ng/mL (<=0.30) < 0.30 ng/mL (<=0.30) Pro-B-Type Natriuretic Peptide 1753 pg/mL (0-450) H Total Protein 7.3 g/dL (6.6-8.7) Albumin 3.6 g/dL (3.5-5.2) Globulin 3.7 g/dL Albumin/Globulin Ratio 0.9 (1.0-2.7) L Ammonia 12 umol/L (16-60) L C-Reactive Protein, Quantitative 14.2 mg/dL (< 0.5) H Triglycerides Level 96 mg/dL (< 150) Cholesterol Level 108 mg/dL (< 200) LDL Cholesterol 28 mg/dL (60-99) L HDL Cholesterol 61 mg/dL (> 60) H Cholesterol/HDL Ratio 1.8 (3.3-4.4) L Carcinoembryonic Antigen 1.1 ng/mL Thyroid Stimulating Hormone (TSH) 2.150 uIU/mL (0.300-4.500) MISTY GRAHAM Dec 20, 2016 13:08
[2016-12-20 15:39] VITALS: BP 133/89
--- NOTE | 2016-12-20 16:01 | Consultation ---
History of Present Illness General Chief Complaint: Chest Pain Present Illness HPI 86 year old male with hx of recent colon cancer, s/p resection, HTN, DM, presented to [facility] by paramedics for increasing ALOC. the daughter was at bedside and she provided most of the hx. the pt pw with delirium and apparently the confusion vacillates. the pt was confused during the eval and was not able to state his name. sleeps most of the day. Allergies: Coded Allergies: No Known Allergies (Unverified , 12/19/16) Medication History Scheduled Aspirin* (Aspir 81*), 81 MG ORAL BID, (Reported) Brimonidine Tartrate/Timolol (Combigan Eye Drops), 5 ML OP BID, (Reported) Brinzolamide (Azopt), 10 ML OP BID, (Reported) Clonazepam* (Klonopin*), 0.5 MG ORAL DAILY, (Reported) Esomeprazole Magnesium (Nexium), 40 MG ORAL DAILY, (Reported) Ferrous Sulfate (Slow Release Iron), 160 MG PO DAILY, (Reported) Finasteride* (Proscar*), 0.5 ML ORAL DAILY, (Reported) Levothyroxine Sodium* (Levothyroxine Sodium*), 75 MCG ORAL DAILY, (Reported) Metformin Hcl* (Metformin Hcl*), 500 MG ORAL TWICE A DAY, (Reported) Midodrine* (Proamatine*), 2.5 MG ORAL BID, (Reported) Nitroglycerin (Nitrostat), 0.4 MG SL PRN, (Reported) Rosuvastatin Calcium* (Crestor*), 40 MG ORAL DAILY, (Reported) Sertraline Hcl* (Sertraline Hcl*), 50 MG ORAL DAILY, (Reported) Silodusin (Rapaflo), 1 EA PO DAILY, (Reported) Solifenacin Succinate* (Vesicare*), 5 MG ORAL DAILY, (Reported) Vitamin B Complex (B Complex), 1 TAB ORAL DAILY, (Reported) Vitamin D (Vitamin D3), 2,000 UNITS ORAL DAILY, (Reported) Scheduled PRN Fluocinonide* (Lidex*), 1 APPLIC TOPIC PRN PRN for Itching, (Reported) Hydroxyzine Hcl (Hydroxyzine Hcl), 25 MG PO BID PRN for Itching, (Reported) Zolpidem Tartrate* (Zolpidem Tartrate*), 10 MG ORAL BEDTIME PRN for Insomnia, ( Reported) Patient History Limited by: language barrier, age, medical condition History Provided By: Patient, Family Member, Medical Record, PMD Healthcare decision maker Resuscitation status Full Code Advanced Directive on File Past Medical/Surgical History Past Medical/Surgical History: (1) Altered level of consciousness (2) Falling episodes (3) Chest pain (4) Left rib fracture (5) Diabetes mellitus (6) Diabetes (7) Colon cancer (8) Hypertension (9) Costochondritis (10) Advanced dementia (11) At high risk for aspiration Review of Systems Constitutional: Reports: malaise, weakness Psychiatric: Reports: anxiety, hallucinations Physical Exam General Appearance: no apparent distress, lethargic, confused, overweight Neurologic: alert, responsive, disoriented, depressed affect Last 24 Hour Vital Signs Date Time Temp Pulse Resp B/P (MAP) Pulse Ox O2 Delivery O2 Flow Rate FiO2 12/20/16 15:39 96.8 77 20 133/89 98 Room Air 12/20/16 12:00 75 12/20/16 11:22 96.9 69 20 147/81 98 Room Air 12/20/16 08:00 78 12/20/16 07:55 96.8 77 20 127/84 95 Room Air 12/20/16 07:48 77 20 Room Air 12/20/16 04:00 85 12/20/16 03:43 96.8 82 16 150/107 96 Room Air 12/20/16 00:15 79 12/19/16 23:46 96.3 85 16 153/111 95 Room Air 12/19/16 20:30 96.4 89 16 148/95 95 Room Air 12/19/16 20:30 91 12/19/16 20:04 90 20 Room Air 21 12/19/16 19:46 91 20 155/98 95 Room Air 12/19/16 19:30 91 20 155/98 95 Room Air 12/19/16 18:40 95 20 188/93 96 Room Air 12/19/16 17:30 96 20 147/90 98 Room Air 12/19/16 17:00 97 20 159/108 97 Room Air 12/19/16 16:10 105 22 166/104 96 Room Air Intake and Output 12/20/16 12/21/16 19:00 07:00 # Voids 1 Laboratory Tests Test 12/19/16 17:59 12/20/16 06:25 Ammonia 12 umol/L (16-60) L White Blood Count 6.3 K/UL (4.8-10.8) Red Blood Count 3.53 M/UL (4.70-6.10) L Hemoglobin 11.8 G/DL (14.2-18.0) L Hematocrit 35.0 % (42.0-52.0) L Mean Corpuscular Volume 99 FL (80-99) Mean Corpuscular Hemoglobin 33.3 PG (27.0-31.0) H Mean Corpuscular Hemoglobin Concent 33.6 G/DL (32.0-36.0) Red Cell Distribution Width 12.8 % (11.6-14.8) Platelet Count 132 K/UL (150-450) L Mean Platelet Volume 7.6 FL (6.5-10.1) Neutrophils (%) (Auto) 67.9 % (45.0-75.0) Lymphocytes (%) (Auto) 20.1 % (20.0-45.0) Monocytes (%) (Auto) 9.6 % (1.0-10.0) Eosinophils (%) (Auto) 1.8 % (0.0-3.0) Basophils (%) (Auto) 0.6 % (0.0-2.0) Prothrombin Time 10.1 SEC (9.30-11.50) Prothromb Time International Ratio 1.0 (0.9-1.1) Activated Partial Thromboplast Time 26 SEC (23-33) Troponin I < 0.30 ng/mL (<=0.30) C-Reactive Protein, Quantitative 14.2 mg/dL (< 0.5) H Triglycerides Level 96 mg/dL (< 150) Cholesterol Level 108 mg/dL (< 200) LDL Cholesterol 28 mg/dL (60-99) L HDL Cholesterol 61 mg/dL (> 60) H Cholesterol/HDL Ratio 1.8 (3.3-4.4) L Carcinoembryonic Antigen 1.1 ng/mL Thyroid Stimulating Hormone (TSH) 2.150 uIU/mL (0.300-4.500) Height (Feet): 5 Height (Inches): 4.00 Weight (Pounds): 150 Medications Current Medications Medications (Trade) Dose Ordered Sig/Edgar Route PRN Reason Start Time Stop Time Status Last Admin Dose Admin Acetaminophen (Tylenol) 650 mg Q4H PRN ORAL FEVER 12/19/16 18:00 01/18/17 17:59 Albuterol/ Ipratropium (DuoNeb 0.5-3(2.5)mg/3ml) 3 ml Q4H PRN HHN Shortness of Breath 12/19/16 18:00 12/24/16 17:59 Aspirin (ASA) 162 mg DAILY ORAL 12/20/16 09:00 01/19/17 08:59 12/20/16 09:24 Clonazepam (KlonoPIN) 0.5 mg DAILY ORAL 12/20/16 09:00 12/27/16 08:59 Diltiazem HCl (Cardizem) 10 mg Q1H PRN IV heart rate more than 120, 12/19/16 18:00 01/18/17 17:59 Enalaprilat (Vasotec) 2.5 mg Q6H PRN IV sbp more than 160 12/19/16 18:00 01/18/17 17:59 Heparin Sodium (Porcine) (Heparin 5000 units/ml) 5,000 units EVERY 12 HOURS SUBQ 12/19/16 21:00 01/18/17 20:59 12/20/16 09:25 Ketorolac Tromethamine (Toradol 30mg) 30 mg Q6H PRN IV moderate pain (4-6) 12/19/16 18:00 12/24/16 17:59 12/20/16 05:49 Levothyroxine Sodium (Synthroid) 75 mcg ACBREAKFAST ORAL 12/20/16 06:30 01/19/17 06:29 Nitroglycerin (Ntg) 0.4 mg Q5M PRN SL Prn Chest Pain 12/19/16 18:00 01/18/17 17:59 Ondansetron HCl (Zofran) 4 mg Q6H PRN IVP Nausea & Vomiting 12/19/16 18:00 01/18/17 17:59 12/19/16 18:49 Pantoprazole (Protonix) 40 mg DAILY ORAL 12/20/16 09:00 01/19/17 08:59 12/20/16 09:24 Polyethylene Glycol (Miralax) 17 gm DAILYPRN PRN ORAL Constipation 12/19/16 18:00 01/18/17 17:59 Sertraline HCl (Zoloft) 50 mg DAILY ORAL 12/20/16 09:00 01/19/17 08:59 12/20/16 09:24 Temazepam (Restoril) 15 mg HSPRN PRN ORAL Insomnia 12/19/16 18:00 12/26/16 17:59 Assessment/Plan Status: not improved Assessment/Plan Encephalopathy no stroke no dementia hx of anoxia -risperdal 1mg qhs -avoid Renata Concepcion M.D. Dec 20, 2016 16:01
--- NOTE | 2016-12-20 18:30 | Cardiology Report ---
APPROVED REPORT EXAM: Two-dimensional and M-mode echocardiogram with Doppler and color Doppler. INDICATION Left ventricular function Technically difficult study due to poor acoustic windows. M-mode measurements not obtainable due to cardiac position. Normal left ventricular chamber size, systolic function and wall motion, howeve the distal septal adn anterior endocardium are not well visulaized Left ventricular ejection fraction estimated to be 60-65 %. No evidence of left ventricular hypertrophy. No evidence of pericardial fat or effusion. All other cardiac chamber sizes are within normal limits. Mild focal aortic valve sclerosis with adequate cusp excursion Thickened mitral valve leaflets with normal excursion. Mitral annulus and aortic root calcification. Pulmonic valve not well visualized. Normal tricuspid valve structure. IVC not obtainable. A color flow and spectral Doppler study was performed and revealed: Mild aortic regurgitation. Mild - moderate mitral regurgitation (2 jets). Left ventricular diastolic dysfunction grade 1. No tricuspid regurgitation. Pulmonic regurgitation present.
[2016-12-20 20:00] VITALS: BP 158/64
--- NOTE | 2016-12-20 22:15 | Consultation ---
DATE OF CONSULTATION: 12/20/2016 CARDIOLOGY CONSULTATION CONSULTING PHYSICIAN: Warren Leroy M.D. REFERRING PHYSICIAN: Jeanine Najera M.D. REASON FOR REFERRAL: Chest pain. HISTORY OF PRESENT ILLNESS: This is an elderly gentleman who is really not able to provide any history. Information is obtained from the patient's daughter, who is at bedside, who was translating and giving me the information. The patient apparently has had two falls, one last week, which was apparently minor and does not result in any injury and one on Monday when he fell walking without his walker to the bathroom. Initially, they thought that he may have had some pain, but nothing serious, however, the next day, which is yesterday morning, he was unable to the stand up or walk and he was refusing to do anything or to eat and would push everything away and because more confused, he was brought to the emergency room, although he also complained of some chest pain. The chest pain apparently is somewhat nondescript and he has had these similar complaints on prior occasions. According to her daughter every time they check based on the chest pain with Dr. Velazquez, it turned out to be a musculoskeletal pain and this is no different that he has on prior occasions. Nevertheless, because of his confusion and the falls and disability to walk, he was brought to the emergency room here at [facility]. He uses 1-1/2 pillows of one large and a small pillow to sleep with. There is no reports of any shortness of breath. There is no reports of lightheadedness. There is no reports of palpitations according to the patient's family. PAST MEDICAL HISTORY: Positive for history of toxic metabolic encephalopathy, for which he was hospitalized at [facility] in September 2016 that apparently infection was ruled out, CVA and seizures were ruled out; hypothyroidism, coronary artery disease status post coronary artery bypass grafting, paroxysmal episodes of atrial fibrillation, type 2 diabetes, and constipation. He is usually followed by Dr. Kishor Velazquez, whose chart I was able to partially review from back in July of 2016, indicates the patient also has a history of anxiety, benign prostatic hypertrophy, degenerative joint disease and disk disease, familiar essential tremor, hypothyroidism, hypertensive heart disease, hyperlipidemia, and sleep apnea. PAST SURGICAL HISTORY: He has had appendectomy, coronary artery bypass graft surgery, and cataract extraction. ALLERGIES: He is not allergic to any medications. SOCIAL HISTORY: He never smoked or drank alcoholic beverages. He lives at home with a 24-hour petroleum supply specialist according to the family members. Father at age of 76 of pancreatic cancer and mother at age of 74 of a sudden cardiac . REVIEW OF SYSTEMS: Gastrointestinal: There has been no reports of nausea, vomiting, diarrhea, or bloody or black stools. He just refuses to eat. Genitourinary: There is no reports of any burning on urination. Pulmonary: Just minimal cough only today not prior to today. Constitutional: There is no reports of any fevers, chills, or night sweats. Neurologic: On admission, confusion, agitation, and anxiety that has apparently been going on intermittently. PHYSICAL EXAMINATION: GENERAL: Shows to be elderly gentleman, in no respiratory distress. NECK: Supple. No jugular venous distention. No abdominojugular reflux noted. LUNGS: There are few crackles noted in the left base. The right appears to be normal, although his effort dependent breath sounds are noted. CARDIAC: Regular rate and rhythm. No heaves, thrills, or gallops are noted. ABDOMEN: Soft. Questionable tenderness. No guarding. No rigidity. No rebound tenderness. EXTREMITIES: There is no clubbing, cyanosis, or edema. Pulses appeared to be decreased at dorsalis pedis bilaterally. NEUROLOGICAL: He is awake, alert, and responsive, and he is following some commands given to him by his daughter. LABORATORY AND DIAGNOSTIC DATA: His white count is 6.3, hemoglobin 11.8, and platelet count of 132,000. His laboratories, sodium 139, potassium 3.8, chloride 102, bicarbonate 23, BUN of 19, creatinine 1.2, and glucose of 135. CK of 130. ProBNP of 1753. Troponin negative on two separate occasions between yesterday and today and ammonia of 12, CRP of 14.2, and total cholesterol 108 with a LDL of 28 and HDL of 61 with a TSH of 2.15. CEA of 1.1. INR is 1.0 and a PTT of 26. An x-ray of the abdomen showed no acute findings. Chest x-ray performed showed no acute disease, mild left basilar atelectasis demonstrated, heart is enlarged, aorta is mildly enlarged, and atherosclerotic disease. Consistent head CT showed no acute intracranial bleed, mass effect, or edema; moderate atrophy was noted. Preliminary echocardiogram shows preserved LV systolic function. Electrocardiogram shows normal sinus rhythm, leftward axis, some nonspecific T-wave changes. In direct comparison with the EKG performed at [facility] in September of 2016 except for the fact that the heart rate may be a little bit faster at this time. There does not appear to be any other significant electrocardiographic abnormalities including the nonspecific T-wave that he had on prior occasions as well. ASSESSMENT: 1. Chest pain. 2. Non-syncopal fall. 3. Toxic metabolic encephalopathy. 4. Coronary artery disease, status post coronary artery bypass grafting history. 5. History of hypertension. 6. History of gastroesophageal reflux disease. 7. History of sleep apnea. 8. History of paroxysmal episodes of atrial fibrillation. PLAN: Dr. Najera, this patient was seen in cardiac consultation. The patient's two sets of cardiac enzymes are negative. Electrocardiogram did not appear to be changed. Echocardiogram has been performed. Preliminary report appears to show normal LV function. I will attempt to review the echocardiogram and repeat EKG and cardiac enzymes will be ordered. Since he has had the same scenario of complaints of chest pain on prior occasions with other workup per daughter, I will probably not pursue any further once cardiac enzymes are confirmed unless he does have increasing evidence of symptoms. Workup of metabolic encephalopathy and fall per yourself. There was no loss of consciousness according to the patient's daughter. Once the petroleum supply specialist heard him fall, he was apparently awake at that time. Warren Leroy M.D. DR: KAMILA JOB#: [id number] CC:
--- NOTE | 2016-12-20 22:19 | Consultation ---
Consult Note Consult Note NEUROLOGY CONSULTATION: Full note dictated #[id number] 86 y/o, RH, CM with PH of HTN, DM, DL, CAD s/p CABG, CKD, and recently diagnosed colon cancer treated surgically. In September 2016 he was hospitalized for an episode of toxic metabolic encephalopathy. 2 days [employer] he again became confused, disoriented and agitated. He was thus brought to [place] [facility] and [place]. ON EXAM: Oriented to self only. Significant aphasia in [place] with son-in-law interpreting. No definite focal dysfunction. CT of brain with no acute path. IMPRESSION: Encephalopathy - etiology unclear. REC: w/u for encephalopathy. Management of behavioral problems as per Dr. Espinosa. Truman Guerra M.D., M.S.P.Cesar. TRUMAN GUERRA Dec 20, 2016 22:19
[2016-12-21] VITALS (7 sets, daily range): BP systolic 97–152; BP diastolic 63–106
--- NOTE | 2016-12-21 01:30 | Consultation ---
DATE OF CONSULTATION: 12/20/2016 NEUROLOGY CONSULTATION REQUESTING PHYSICIAN: Jeanine Najera M.D. HISTORY: The patient is an 86-year-old right-handed gentleman, who does have a past history of hypertension, diabetes mellitus, dyslipidemia, coronary artery disease, status post coronary artery bypass graft, chronic kidney disease, and recently diagnosed colon cancer that was treated surgically. In September 2016, he was hospitalized at [facility] for an episode of toxic metabolic encephalopathy. He did improve following that. Then approximately two days prior to admission, he again became increasingly confused, disoriented, and agitated. He was thus brought into the [facility] emergency room and admitted. At this point in time, he is not very verbal and has significant problems processing information. He is unable to give me any further history. PAST HISTORY: Significant for hypertension, diabetes mellitus, dyslipidemia, coronary artery disease, chronic kidney disease, colon cancer, and recent episode of toxic metabolic encephalopathy in September 2016. FAMILY HISTORY: Significant for high blood pressure and diabetes mellitus in other family members. PERSONAL HISTORY: Home, he lives with other family members. 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 Habits, unknown. PRESENT MEDICATIONS: Include Risperdal 1 mg at bedtime, Zoloft 50 mg daily, aspirin, Protonix, levothyroxine, heparin for DVT prophylaxis, DuoNeb inhaler, nitroglycerin p.r.n., Tylenol p.r.n., Toradol p.r.n., MiraLax p.r.n., Zofran p.r.n., Vasotec, and diltiazem. PHYSICAL EXAMINATION: GENERAL: He is a well-developed, well-nourished, pleasant gentleman, lying in bed, in no acute distress. VITAL SIGNS: Pulse 76 per minute, blood pressure 158/64 mmHg, respirations 20 per minute, and temperature 97.2 degrees Fahrenheit. HEENT: Head, normocephalic and atraumatic. EENT examination benign. NECK: No neck rigidity was observed. NEUROLOGIC: Mental status, he was awake, but not very alert. He was oriented to self only. He had no idea where he was or what the date was. He had significant problems understanding language and expressing himself even in Bahamian, with his son-in-law being the facing baster indicating significant global language problems. Further mental status testing was impossible. Speech, he had mild dysarthria. Language, he had problems with comprehension, repetition, naming and expression of language in Bahamian. CRANIAL NERVE II: The visual matt were intact to threat. He was unable to cooperate for confrontation testing. CRANIAL NERVES III, IV, AND : The external ocular movements were full. The pupils are 3 mm in diameter, equal, round, regular, and reactive to light. CRANIAL NERVES V: He had normal facial sensations and the temporalis, masseters, and pterygoids function normally. CRANIAL NERVES VII: He had normal facial expressions. No facial asymmetry. CRANIAL NERVES VIII: Was able to hear well bilaterally and had no nystagmus. CRANIAL NERVE IX: The palate moved symmetrically on phonation. CRANIAL NERVE X: He had no hoarseness of voice. CRANIAL NERVES XI: The sternocleidomastoids and trapezii functioned normally. CRANIAL NERVES XII: The tongue was in the midline without any fasciculations or atrophy. MOTOR SYSTEM: The tone was normal in all four extremities. Examination of muscle mass revealed no focal wasting. Examination of power revealed grade 5/5 power in all muscle groups tested. SENSORY EXAMINATION: He responded appropriately to deep pain. He was unable to cooperate for other sensory modalities. REFLEXES: Trace positive and bilaterally symmetrical at the biceps, triceps, brachioradialis, and knees and 0 at both ankles. The plantar responses were flexor bilaterally. COORDINATION: Stance and gait could not be tested. DIAGNOSTIC IMPRESSION: 1. The patient is an 86-year-old right-handed gentleman, who does have a past history of hypertension, diabetes mellitus, dyslipidemia, coronary artery disease, chronic kidney disease, and recently diagnosed colon cancer that was treated surgically, who in September did have an episode of toxic metabolic encephalopathy. About two days prior to admission, he again started to become increasingly confused, disoriented, and agitated, and as a result of that, he was hospitalized at [facility] on 12/19/2016. He continues to be cognitively impoverished and has significant behavioral problems. 2. On neurological examination at this time, he is oriented to self only, has significant language problems, and exhibits global cerebral dysfunction. He, however does not demonstrate any focal or lateralizing findings. His deep tendon reflexes are globally diminished. 3. The CT scan of the brain without contrast performed on 12/19/2016 reveals no acute pathology, but does reveal some mild old deep white matter disease. 4. Laboratory data obtained thus far revealed that he is anemic with a hemoglobin of 11.8. His chemistry panel is relatively benign except for an elevated blood sugar. His proBNP is elevated to 1753 and his INR is 1.0. His TSH is normal at 2.15. His total cholesterol is 108 with an LDL of 28 and HDL of 61. His ammonia is 12. 5. The patient's history and neurological examination are most compatible with an ongoing encephalopathic process. The exact etiology for his encephalopathy is unclear at this point in time. He does however have an anemia and elevated proBNP. RECOMMENDATIONS: 1. Agree with management thus far. 2. Agree with the management of behavioral problems as per Dr. Espinosa. 3. The patient will be worked up thoroughly for other treatable causes of encephalopathy with in addition to the laboratory tests already done, a B12 level, folate level, vitamin D level, RPR, Westergren sedimentation rate, and thyroid function tests. 4. An EEG will be ordered to evaluate the patient for the degree and type of encephalopathy. 5. The urinalysis will be ordered to exclude urinary tract infection. 6. Depending on how the patient fairs over the next day or so further recommendations will be given. Thank you for entrusting me with the care of this patient. I shall follow him with you. Gelacio Guerra M.D. DR: RACHELLE JOB#: [id number] CC:
[2016-12-21 07:26] LABS: TROPONIN I < 0.30 ng/mL (<=0.30)
[2016-12-21] MEDS: Sertraline 50mg tab ORAL SCH (09:04)
[2016-12-21] MEDS: Aspirin Baby 81mg ORAL SCH (09:05)
[2016-12-21] MEDS: Heparin 5000 units/ml inj SUBQ SCH ×2 (09:07→21:43)
--- NOTE | 2016-12-21 11:54 | General Progress Note ---
Assessment/Plan Status: stable, progressing Assessment/Plan delirium r/o anoxic brain injury -cont current meds -no benzo Subjective Constitutional: Reports: malaise, weakness Neurologic/Psychiatric: Reports: depressed, emotional problems Allergies: Coded Allergies: No Known Allergies (Unverified , 12/19/16) Subjective daughter bedside. the pt is more alert. ate this am. more interactive. still confused and disoriented, Objective Last 24 Hour Vital Signs Date Time Temp Pulse Resp B/P (MAP) Pulse Ox O2 Delivery O2 Flow Rate FiO2 12/21/16 08:00 108 12/21/16 08:00 97.5 113 18 141/89 93 Room Air 12/21/16 07:45 113 20 Room Air 21 12/21/16 04:00 97.0 90 21 141/106 90 Room Air 12/21/16 00:00 97.3 91 20 142/105 89 Room Air 12/20/16 20:00 97.2 76 20 158/64 90 Room Air 12/20/16 19:30 75 20 Room Air 21 12/20/16 16:00 72 12/20/16 15:39 96.8 77 20 133/89 98 Room Air 12/20/16 12:00 75 Intake and Output 12/21/16 12/22/16 19:00 07:00 Intake Total 120 ml Balance 120 ml Intake Oral 120 ml Laboratory Tests 12/21/16 05:05: Erythrocyte Sedimentation Rate 108H, Troponin I < 0.30, Vitamin B12 Level 574, Vitamin D 25-Hydroxy [Pending], 25-Hydroxy Vitamin D2 [Pending], 25-Hydroxy Vitamin D3 [Pending], Folate [Pending], Rapid Plasma Reagin [Pending] Height (Feet): 5 Height (Inches): 4.00 Weight (Pounds): 150 General Appearance: no apparent distress, alert, confused, overweight Neurologic: alert, responsive, disoriented, depressed affect Renata Espinosa M.D. Dec 21, 2016 11:54
--- NOTE | 2016-12-21 12:35 | Pulmonology Progress Note ---
Assessment/Plan Problems: (1) Altered level of consciousness (2) Costochondritis (3) Hypertension (4) Diabetes mellitus (5) Left rib fracture (6) At high risk for aspiration (7) Colon cancer (8) Advanced dementia Assessment/Plan all reviewed d/w daughter at the bed site d/w Dr cote and Dr salazar pain management swallow study noted pt/ot dvt prophylaxis dc condom cath Subjective ROS Limited/Unobtainable: No Constitutional: Reports: no symptoms HEENT: Repors: no symptoms Respiratory: Reports: no symptoms Allergies: Coded Allergies: No Known Allergies (Unverified , 12/19/16) Objective Last 24 Hour Vital Signs Date Time Temp Pulse Resp B/P (MAP) Pulse Ox O2 Delivery O2 Flow Rate FiO2 12/21/16 08:00 108 12/21/16 08:00 97.5 113 18 141/89 93 Room Air 12/21/16 07:45 113 20 Room Air 21 12/21/16 04:00 97.0 90 21 141/106 90 Room Air 12/21/16 00:00 97.3 91 20 142/105 89 Room Air 12/20/16 20:00 97.2 76 20 158/64 90 Room Air 12/20/16 19:30 75 20 Room Air 21 12/20/16 16:00 72 12/20/16 15:39 96.8 77 20 133/89 98 Room Air Intake and Output 12/21/16 12/22/16 19:00 07:00 Intake Total 120 ml Balance 120 ml Intake Oral 120 ml General Appearance: WD/WN, no acute distress HEENT: normocephalic, atraumatic Respiratory/Chest: chest wall non-tender, lungs clear Cardiovascular: normal peripheral pulses, regular rhythm Abdomen: normal bowel sounds, soft, non tender, no scars Extremities: no cyanosis, no clubbing Skin: no rash Neurologic/Psychiatric: no motor/sensory deficits Lymphatic: no neck adenopathy, no groin adenopathy Musculoskeletal: normal muscle bulk Laboratory Tests 12/21/16 05:05: Erythrocyte Sedimentation Rate 108H, Troponin I < 0.30, Vitamin B12 Level 574, Vitamin D 25-Hydroxy [Pending], 25-Hydroxy Vitamin D2 [Pending], 25-Hydroxy Vitamin D3 [Pending], Folate [Pending], Rapid Plasma Reagin [Pending] Current Medications Medications (Trade) Dose Ordered Sig/Edgar Route PRN Reason Start Time Stop Time Status Last Admin Dose Admin Acetaminophen (Tylenol) 650 mg Q4H PRN ORAL FEVER 12/19/16 18:00 01/18/17 17:59 Albuterol/ Ipratropium (DuoNeb 0.5-3(2.5)mg/3ml) 3 ml Q4H PRN HHN Shortness of Breath 12/19/16 18:00 12/24/16 17:59 Aspirin (ASA) 162 mg DAILY ORAL 12/20/16 09:00 01/19/17 08:59 12/21/16 09:05 Diltiazem HCl (Cardizem) 10 mg Q1H PRN IV heart rate more than 120, 12/19/16 18:00 01/18/17 17:59 Enalaprilat (Vasotec) 2.5 mg Q6H PRN IV sbp more than 160 12/19/16 18:00 01/18/17 17:59 Heparin Sodium (Porcine) (Heparin 5000 units/ml) 5,000 units EVERY 12 HOURS SUBQ 12/19/16 21:00 01/18/17 20:59 12/21/16 09:07 Ketorolac Tromethamine (Toradol 30mg) 30 mg Q6H PRN IV moderate pain (4-6) 12/19/16 18:00 12/24/16 17:59 12/20/16 05:49 Levothyroxine Sodium (Synthroid) 75 mcg ACBREAKFAST ORAL 12/20/16 06:30 01/19/17 06:29 12/21/16 06:21 Nitroglycerin (Ntg) 0.4 mg Q5M PRN SL Prn Chest Pain 12/19/16 18:00 01/18/17 17:59 Ondansetron HCl (Zofran) 4 mg Q6H PRN IVP Nausea & Vomiting 12/19/16 18:00 01/18/17 17:59 12/19/16 18:49 Pantoprazole (Protonix) 40 mg DAILY ORAL 12/20/16 09:00 01/19/17 08:59 12/21/16 09:04 Polyethylene Glycol (Miralax) 17 gm DAILYPRN PRN ORAL Constipation 12/19/16 18:00 01/18/17 17:59 Risperidone (RisperDAL) 1 mg BEDTIME ORAL 12/20/16 21:00 01/19/17 20:59 12/20/16 20:46 Sertraline HCl (Zoloft) 50 mg DAILY ORAL 12/20/16 09:00 01/19/17 08:59 12/21/16 09:04 RODRIGUEZ DEL RIO Dec 21, 2016 12:35
[2016-12-21] MEDS ORDERED: Nitroglycerin Subl 0.4mg tab (Bottle Of 25) SL PRN (15:15)
[2016-12-21] MEDS ORDERED: Enalaprilat 2.5mg/2ml Inj IV PRN (16:00)
[2016-12-21] MEDS ORDERED: DuoNeb 0.5-3(2.5)mg/3ml neb HHN PRN (16:00)
[2016-12-21] MEDS ORDERED: Miralax 17gm pkt ORAL PRN (16:00)
[2016-12-21] MEDS ORDERED: Diltiazem 25mg/5ml IV PRN (16:00)
--- NOTE | 2016-12-21 16:31 | Cardiology Report ---
APPROVED REPORT EKG Measurement Heart [id number] [place] 208P [id number] Sinus tachycardia Left anterior fascicular block Left ventricular hypertrophy with repolarization abnormality Cannot rule out Septal infarct, age undetermined Abnormal ECG
[2016-12-21] MEDS ORDERED: Ketorolac 30mg Inj IV PRN (18:00)
[2016-12-21 18:46] LABS: TROPONIN I < 0.30 ng/mL (<=0.30)
--- NOTE | 2016-12-21 19:01 | Neurology Progress Note ---
Interim History Interim History ROS Limited/Unobtainable: Yes Complaints: not verbalizing Events: increasingly less verbal, confused , able to swallow cookies, Interim History mri brai in 10/01 no acute changes Objective Physical Exam Last Vital Signs Date Time Temp Pulse Resp B/P (MAP) Pulse Ox O2 Delivery O2 Flow Rate FiO2 12/21/16 16:00 98.1 80 20 136/85 95 Room Air 12/21/16 07:45 21 Laboratory Tests Test 12/21/16 05:05 12/21/16 18:05 Erythrocyte Sedimentation Rate 108 MM/HR (0-30) H Troponin I < 0.30 ng/mL (<=0.30) Pending Vitamin B12 Level 574 pg/mL (211-946) Vitamin D 25-Hydroxy Pending 25-Hydroxy Vitamin D2 Pending 25-Hydroxy Vitamin D3 Pending Folate Pending Rapid Plasma Reagin Pending General: well developed, well nourished, no acute distress Head: normocophalic, atraumatic Neck: no rigidity Neurologic Exam Mental Status: awake, alert, other - limited verbal output, ox last name , ok eye tracking, follows some commands Speech: no dysarthia Language: other Cranial Nerve II: fundus normal, visual matt, no papilledema Cranial Nerves III, IV, : PERRLA, EOMI, pupils Cranial Nerve V: normal facial sensations, temporales function normal, masseters function normal, pterygoids function normal Cranial Nerve VII: no facial asymmetry, normal facial expressions Cranial Nerve VIII: normal hearing, no nystagmus Cranial Nerve IX: normal palate elevation, gag response Cranial Nerve X: no voice hoarseness Cranial Nerve XI: SCM symmetric, trapezii function normal Cranial Nerve XII: tongue midline, no tongue atrophy/fasciculations Motor System: normal muscle tone, strength 5/5, no involuntary movement, no muscle wasting Sensory: normal pinprick Coordination: other Deep Tendon Reflexes: 1+ bicep (L), 1+ bicep (R), 1+ tricep (L), 1+ tricep (R) , 1+ brachioradialis (L), 1+ brachioradialis (R), 1+ knee (L), 1+ knee (R), 1+ ankle (L), 1+ ankle (R) Reflexes: mute plantar (L), mute plantar (R) Stance: other Gait: other Impression/Recommendations Problems: (1) Vascular dementia with delirium (2) s/p colon cancer resection in august 2016 (3) progresive cognitive loss, poor verbal output,abnormal gait. Status: stable, progressing Recommendations hold unessential meds, pt/ot crp/umesh/ d/w RIGOBERTO Gomez Dec 21, 2016 19:01
[2016-12-21] MEDS: Tamsulosin 0.4mg cap ORAL SCH (21:42)
[2016-12-21 22:30] LABS: CRP QUANT 16.6 mg/dL (< 0.5)
[2016-12-22 04:00] VITALS: BP 160/91
[2016-12-22 07:47] LABS: ALANINE AMINOTRANSFERASE 9 U/L (3-41); ALBUMIN/GLOBULIN RATIO 0.7 (1.0-2.7); ANION GAP 15 (5-15); ASPARTATE AMINO TRANSFERASE 17 U/L (5-40); CALCIUM 9.3 mg/dL (8.6-10.2); CARBON DIOXIDE 20 mEQ/L (20-30); CHLORIDE 103 mEQ/L (98-107); CREATININE 1.3 mg/dL (0.7-1.2); HEMOLYSIS 18; POTASSIUM 3.7 mEQ/L (3.4-4.9); SODIUM 138 mEQ/L (135-145); TOTAL PROTEIN 6.7 g/dL (6.6-8.7)
[2016-12-22 08:17] VITALS: BP 130/85
[2016-12-22] MEDS: Heparin 5000 units/ml inj SUBQ SCH ×2 (09:00→21:00)
[2016-12-22] MEDS ORDERED: Aspirin Baby 81mg ORAL SCH (09:00)
[2016-12-22] MEDS: Sertraline 50mg tab ORAL SCH (09:03)
[2016-12-22 12:18] VITALS: BP 152/84
--- NOTE | 2016-12-22 14:15 | Diagnostic Imaging Report ---
Indication: Acute renal failure Technique: Grayscale and duplex images of the kidneys, retroperitoneum, and bladder were obtained. Comparison:None Findings: Right kidney measures 10.9 cm in length. Left kidney measures 9.7 cm in length. Both kidneys demonstrate normal echogenicity. No hydronephrosis. There is a questionable 6 mm left renal interpolar region cortical cyst and a second questionable 14 mm upper pole cyst. The right kidney demonstrates multiple cysts, the largest in the interpolar region measuring 4.7 cm axis dimension. Normal inferior vena cava. Bladder is normal. The prostate is enlarged, volume 6.3 cm. The bladder demonstrates a dependent echogenic structure, as well as what might be debris layering dependently. Impression: Negative for hydronephrosis Possible bladder calcification. Possible debris within the bladder Incidental finding bilateral renal cysts.
--- NOTE | 2016-12-22 15:07 | Neurology Progress Note ---
Interim History Interim History ROS Limited/Unobtainable: Yes Complaints: not verbalizing, nodding Events: increasingly less verbal, confused ,not sleeping /restless at night time Objective Physical Exam Last Vital Signs Date Time Temp Pulse Resp B/P (MAP) Pulse Ox O2 Delivery O2 Flow Rate FiO2 12/22/16 12:18 97.9 21 152/84 95 Room Air 12/22/16 08:35 92 12/21/16 20:15 21 Laboratory Tests Test 12/21/16 18:05 12/21/16 21:20 12/22/16 05:00 Troponin I < 0.30 ng/mL (<=0.30) Ammonia 12 umol/L (16-60) L C-Reactive Protein, Quantitative 16.6 mg/dL (< 0.5) H Alpha-Tocopherol Level Pending Anti-Nuclear Antibody Screen Pending Sodium Level 138 mEQ/L (135-145) Potassium Level 3.7 mEQ/L (3.4-4.9) Chloride Level 103 mEQ/L (98-107) Carbon Dioxide Level 20 mEQ/L (20-30) Anion Gap 15 (5-15) Blood Urea Nitrogen 25 mg/dL (7-23) H Creatinine 1.3 mg/dL (0.7-1.2) H Estimat Glomerular Filtration Rate mL/min (>60) Glucose Level 122 mg/dL (74-106) H Calcium Level 9.3 mg/dL (8.6-10.2) Total Bilirubin 0.5 mg/dL (0.0-1.2) Aspartate Amino Transf (AST/SGOT) 17 U/L (5-40) Alanine Aminotransferase (ALT/SGPT) 9 U/L (3-41) Alkaline Phosphatase 77 U/L (40-129) Total Protein 6.7 g/dL (6.6-8.7) Albumin 2.9 g/dL (3.5-5.2) L Globulin 3.8 g/dL Albumin/Globulin Ratio 0.7 (1.0-2.7) L General: well developed, well nourished, no acute distress Head: normocophalic, atraumatic Neck: no rigidity Neurologic Exam Mental Status: awake, alert, other - eyes open nonverbal angry resisting exam Speech: no dysarthia, other Language: other Cranial Nerve II: fundus normal, visual matt, no papilledema Cranial Nerves III, IV, : PERRLA, EOMI, pupils Cranial Nerve V: normal facial sensations, temporales function normal, masseters function normal, pterygoids function normal Cranial Nerve VII: no facial asymmetry, normal facial expressions, other - masced face Cranial Nerve VIII: normal hearing, no nystagmus Cranial Nerve IX: normal palate elevation, gag response Cranial Nerve X: no voice hoarseness Cranial Nerve XI: SCM symmetric, trapezii function normal Cranial Nerve XII: tongue midline, no tongue atrophy/fasciculations Motor System: strength 5/5, no involuntary movement, no muscle wasting, other - diffuse rigidity resist exam Sensory: normal pinprick Coordination: other Deep Tendon Reflexes: 1+ bicep (L), 1+ bicep (R), 1+ tricep (L), 1+ tricep (R) , 1+ brachioradialis (L), 1+ brachioradialis (R), 1+ knee (L), 1+ knee (R), 1+ ankle (L), 1+ ankle (R) Reflexes: mute plantar (L), mute plantar (R) Stance: other Gait: other Impression/Recommendations Problems: (1) Vascular dementia with delirium (2) s/p colon cancer resection in august 2016 (3) progresive cognitive loss, poor verbal output,abnormal gait. Status: stable, progressing Recommendations hold unessential meds, pt/ot EEG c/w encephalopathy with epileptiform activity L temporal d/w family depacote 125mg bid trazodone 50mg q hs psych f/u RIGOBERTO TAPIA Dec 22, 2016 15:07
[2016-12-22 16:02] VITALS: BP 147/68
[2016-12-22] MEDS: COMBIGAN BOTH EYES SCH (18:47)
[2016-12-22] MEDS: AZOPT 1% OPHTHALM SCH (18:47)
--- NOTE | 2016-12-22 19:00 | Pulmonology Progress Note ---
Assessment/Plan Problems: (1) Altered level of consciousness (2) Costochondritis (3) Hypertension (4) Diabetes mellitus (5) Left rib fracture (6) At high risk for aspiration (7) Colon cancer (8) Advanced dementia Assessment/Plan daughter doesn't think pt is ready for discharge all reviewed d/w daughter at the bed site d/w Dr cote and Dr salazar pain management swallow study noted pt/ot dvt prophylaxis daughter appealing the discharge I recommended either short term rehab or home with hospice ( she wants to think about it) Subjective ROS Limited/Unobtainable: No Constitutional: Reports: no symptoms HEENT: Repors: no symptoms Respiratory: Reports: no symptoms Allergies: Coded Allergies: No Known Allergies (Unverified , 12/19/16) Objective Last 24 Hour Vital Signs Date Time Temp Pulse Resp B/P (MAP) Pulse Ox O2 Delivery O2 Flow Rate FiO2 12/22/16 16:02 97.7 68 18 147/68 94 Room Air 12/22/16 12:18 97.9 21 152/84 95 Room Air 12/22/16 08:35 92 16 Room Air 12/22/16 08:17 97.5 89 21 130/85 95 Room Air 12/22/16 04:00 97.2 85 18 160/91 96 Room Air 12/21/16 23:54 98.3 77 18 148/95 95 Room Air 12/21/16 20:15 94 18 Room Air 21 12/21/16 20:00 98.8 75 19 152/91 94 Room Air Intake and Output 12/22/16 12/23/16 19:00 07:00 Intake Total 240 ml Output Total 350 ml Balance -110 ml Intake Oral 240 ml Output Urine Total 350 ml General Appearance: WD/WN HEENT: normocephalic, atraumatic Respiratory/Chest: chest wall non-tender, lungs clear Cardiovascular: normal peripheral pulses, normal rate Abdomen: normal bowel sounds, soft, non tender Genitourinary: normal external genitalia Skin: no rash 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 normal, alert Laboratory Tests 12/21/16 21:20: Ammonia 12L, C-Reactive Protein, Quantitative 16.6H, Alpha-Tocopherol Level [ Pending], Anti-Nuclear Antibody Screen [Pending] 12/22/16 05:00: Sodium Level 138, Potassium Level 3.7, Chloride Level 103, Carbon Dioxide Level 20, Anion Gap 15, Blood Urea Nitrogen 25H, Creatinine 1.3H, Estimat Glomerular Filtration Rate , Glucose Level 122H, Calcium Level 9.3, Total Bilirubin 0.5, Aspartate Amino Transf (AST/SGOT) 17, Alanine Aminotransferase (ALT/SGPT) 9, Alkaline Phosphatase 77, Total Protein 6.7, Albumin 2.9L, Globulin 3.8, Albumin/ Globulin Ratio 0.7L Current Medications Medications (Trade) Dose Ordered Sig/Edgar Route PRN Reason Start Time Stop Time Status Last Admin Dose Admin Acetaminophen (Tylenol) 650 mg Q4H PRN ORAL FEVER 12/21/16 16:00 01/18/17 15:59 12/22/16 11:52 Albuterol/ Ipratropium (DuoNeb 0.5-3(2.5)mg/3ml) 3 ml Q4H PRN HHN Shortness of Breath 12/21/16 16:00 12/24/16 15:59 Aspirin (ASA) 81 mg DAILY ORAL 12/23/16 09:00 01/22/17 08:59 Clonidine HCl (Catapres) 0.2 mg Q6H PRN ORAL For High Blood Pressure 12/22/16 06:45 01/21/17 06:44 Divalproex Sodium (Depakote) 250 mg EVERY 12 HOURS ORAL 12/22/16 09:00 01/21/17 08:59 12/22/16 09:01 Finasteride (Proscar) 5 mg DAILY ORAL 12/22/16 09:00 01/21/17 08:59 12/22/16 09:03 Heparin Sodium (Porcine) (Heparin 5000 units/ml) 5,000 units EVERY 12 HOURS SUBQ 12/21/16 21:00 01/18/17 20:59 12/21/16 21:43 Levothyroxine Sodium (Synthroid) 75 mcg ACBREAKFAST ORAL 12/22/16 06:30 01/19/17 06:29 Nitroglycerin (Ntg) 0.4 mg Q5M PRN SL Prn Chest Pain 12/21/16 15:15 01/20/17 15:14 Ondansetron HCl (Zofran) 4 mg Q6H PRN IVP Nausea & Vomiting 12/21/16 16:00 01/18/17 15:59 Patient Own Medication (Patient's Own Med) 1 ea BID BOTH EYES 12/22/16 18:00 01/21/17 17:59 12/22/16 18:47 Patient Own Medication (Patient's Own Med) 1 ea BID OPHTHALM 12/22/16 18:00 01/21/17 17:59 12/22/16 18:47 Polyethylene Glycol (Miralax) 17 gm DAILYPRN PRN ORAL Constipation 12/21/16 16:00 01/18/17 15:59 Potassium Chloride 10 meq/ Dextrose/Sodium Chloride 1,005 ml @ 50 mls/hr Q20H6M IV 12/22/16 19:30 01/21/17 19:29 Risperidone (RisperDAL) 1 mg BEDTIME ORAL 12/21/16 21:00 01/19/17 20:59 12/21/16 21:42 Sertraline HCl (Zoloft) 50 mg DAILY ORAL 12/22/16 09:00 01/19/17 08:59 12/22/16 09:03 Tamsulosin HCl (Flomax) 0.4 mg BEDTIME ORAL 12/21/16 21:00 01/20/17 20:59 12/21/16 21:42 Trazodone HCl (Desyrel) 50 mg BEDTIME ORAL 12/22/16 21:00 01/21/17 20:59 RODRIGUEZ DEL RIO Dec 22, 2016 19:00
[2016-12-22 20:00] VITALS: BP 123/83
[2016-12-22] MEDS ORDERED: TraZODone 50mg tab ORAL SCH (21:00)
[2016-12-22] MEDS: Potassium Chloride 10 MEQ in D5 1/2NS 1,000 ML IV SCH (21:58)
[2016-12-22] MEDS: Tamsulosin 0.4mg cap ORAL SCH (21:58)
--- NOTE | 2016-12-22 22:47 | General Progress Note ---
Assessment/Plan Assessment/Plan delirium r/o anoxic brain injury per daughter the pt has been dx with this in past -cont current meds -no benzo Subjective Allergies: Coded Allergies: No Known Allergies (Unverified , 12/19/16) Subjective daughter bedside. the pt is more alert. the pt is progressing gradually. Discont trazodone and depakote started by neuro. the pt is not depressed and not agitated. still confused and disoriented, Objective Last 24 Hour Vital Signs Date Time Temp Pulse Resp B/P (MAP) Pulse Ox O2 Delivery O2 Flow Rate FiO2 12/22/16 20:03 73 18 Room Air 12/22/16 20:00 97.9 66 20 123/83 93 Room Air 12/22/16 16:02 97.7 68 18 147/68 94 Room Air 12/22/16 12:18 97.9 21 152/84 95 Room Air 12/22/16 08:35 92 16 Room Air 12/22/16 08:17 97.5 89 21 130/85 95 Room Air 12/22/16 04:00 97.2 85 18 160/91 96 Room Air 12/21/16 23:54 98.3 77 18 148/95 95 Room Air Intake and Output 12/22/16 12/23/16 19:00 07:00 Intake Total 240 ml Output Total 350 ml Balance -110 ml Intake Oral 240 ml Output Urine Total 350 ml Laboratory Tests 12/22/16 05:00: Sodium Level 138, Potassium Level 3.7, Chloride Level 103, Carbon Dioxide Level 20, Anion Gap 15, Blood Urea Nitrogen 25H, Creatinine 1.3H, Estimat Glomerular Filtration Rate , Glucose Level 122H, Calcium Level 9.3, Total Bilirubin 0.5, Aspartate Amino Transf (AST/SGOT) 17, Alanine Aminotransferase (ALT/SGPT) 9, Alkaline Phosphatase 77, Total Protein 6.7, Albumin 2.9L, Globulin 3.8, Albumin/ Globulin Ratio 0.7L Height (Feet): 5 Height (Inches): 4.00 Weight (Pounds): 151 General Appearance: no apparent distress, alert, confused, overweight Neurologic: alert, normal mood/affect, disoriented Renata Espinosa M.D. Dec 22, 2016 22:47
--- NOTE | 2016-12-22 23:30 | Electroencephalogram ---
DATE OF PROCEDURE: 12/21/2016 ELECTROENCEPHALOGRAPHY REPORT REFERRING PHYSICIAN: Jeanine Najera M.D. HISTORY: This is an 86 years old man with intermittent episodes of obtundation and verbal unresponsiveness, suspected to have seizure activities. TECHNIQUE: EEG was done using 18 electrodes placed on scalp to scalp, scalp to ear montages according to 10/20 International System. Current treatment includes Zoloft, Vasotec, and Risperdal. During the recording, the patient described as being awake or drowsy, but poorly cooperative being restless. Most wakeful portions of recording, background activity consists of irregular medium to high voltage theta activities ranging 5-6 cycles per second bilaterally with intermittent appearance of high voltage sharply contoured 1 to 2 per second slow-wave transient emanating from predominantly left temporal areas. No associated clinical signs noted. Photic stimulation was obtained, result no significant changes. Some areas of EMG artifacts were noted. Epochs of further attenuation and disorganization of background noted corresponding to sleep stages. IMPRESSION: Abnormal EEG with moderate diffuse slowing and intermittent epileptiform activity emanating from left temporal lobe area. COMMENT: Above abnormality indicate the significant global cerebral dysfunction with epileptiform activity in the left temporal areas suggestive of underlying structural lesion, raising the risk of seizure activity. Clinical correlation is necessary. Jeovanny Hawley M.D. DR: Suman JOB#: [id number] CC:
[2016-12-23] VITALS (7 sets, daily range): BP systolic 102–181; BP diastolic 77–100
[2016-12-23 07:08] LABS: BASOPHILS % (AUTO) 0.6 % (0.0-2.0); EOSINOPHILS % (AUTO) 3.2 % (0.0-3.0); LYMPHOCYTES % (AUTO) 22.1 % (20.0-45.0); MEAN CORPUSCULAR HGB CONC 32.2 G/DL (32.0-36.0); MEAN CORPUSCULAR VOLUME 99 FL (80-99); MEAN PLATELET VOLUME 7.6 FL (6.5-10.1); MONOCYTES % (AUTO) 7.8 % (1.0-10.0); NEUTROPHILS % (AUTO) 66.4 % (45.0-75.0); PLATELET COUNT 145 K/UL (150-450); RED BLOOD COUNT 3.55 M/UL (4.70-6.10); RED CELL DISTRIBUTION WIDTH 12.6 % (11.6-14.8); WHITE BLOOD COUNT 5.4 K/UL (4.8-10.8)
[2016-12-23 07:31] LABS: ALANINE AMINOTRANSFERASE 9 U/L (3-41); ALBUMIN/GLOBULIN RATIO 0.7 (1.0-2.7); ANION GAP 12 (5-15); ASPARTATE AMINO TRANSFERASE 16 U/L (5-40); CALCIUM 9.4 mg/dL (8.6-10.2); CARBON DIOXIDE 23 mEQ/L (20-30); CHLORIDE 107 mEQ/L (98-107); CREATININE 1.3 mg/dL (0.7-1.2); HEMOLYSIS 4; MAGNESIUM 2.1 mg/dL (1.7-2.5); POTASSIUM 3.7 mEQ/L (3.4-4.9); SODIUM 142 mEQ/L (135-145); TOTAL PROTEIN 6.8 g/dL (6.6-8.7)
--- NOTE | 2016-12-23 08:44 | Pulmonology Progress Note ---
Assessment/Plan Assessment/Plan ASSESSMENT acute toxic metabolic encephalopathy on vascular dementia with delusion delirium s/p non syncopal fall chest pain costochondritis left ribs fracture CAD with hx of CABG HTN colon Ca , s/p resection mild to moderate MR anemia progressive cognitive loss constipation CRI PLAN OF CARE MS floor gentle IVF mental status improving CT head no acute IC pathology neuro and psych follows psych dc Risperdal, started on Zyprexa, recommended to keep off benzo CXR no acute findings documented L rib fracture per ED doctor but no evidence of rib fracture on CXR will do rib series ECHO with pEF 60-65% and mild to moderate MR, mild AR continue ASA BP stable, monitor, renal US no hydro, 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, creat with no change with IV hydration cardio follows serial troponin negative ECHO with PEF no acute ischemic changes on ECG no further workup needed as per cardio, since similar symptoms in the past as per daughter report No LOC, no blackout with fall EEG reviewed with neuro - L side slowing c/w mild encephalopathy per neuro patient has vascular dementia with delusion and progressive cognitive decline PT/OT fall precautions bowel regimen daughter appealed 12/22 awaiting [facility] medicare decision plan dc home with hospice services ; daughter only wants home monitor HH transfuse prn, goal to keep Hgb above 8 pain management case discussed and evaluated by supervising physician Subjective Allergies: Coded Allergies: No Known Allergies (Unverified , 12/19/16) Subjective no chest pain, no SOB mental status improving, conversed with daughter and me this morning daughter reported no BM x 5 days Objective Last 24 Hour Vital Signs Date Time Temp Pulse Resp B/P (MAP) Pulse Ox O2 Delivery O2 Flow Rate FiO2 12/23/16 04:00 97.3 70 20 147/85 95 Room Air 12/23/16 00:00 97.1 89 20 102/84 90 Room Air 12/22/16 20:03 73 18 Room Air 12/22/16 20:00 97.9 66 20 123/83 93 Room Air 12/22/16 16:02 97.7 68 18 147/68 94 Room Air 12/22/16 12:18 97.9 21 152/84 95 Room Air General Appearance: no acute distress, other - bedridden, elderly Belarusian speaking male in NAD HEENT: normocephalic, atraumatic, mucous membranes moist Respiratory/Chest: lungs clear - with moderate air entry Cardiovascular: normal peripheral pulses, normal rate, regular rhythm Abdomen: soft, non tender Extremities: no edema, pedal pulses normal Neurologic/Psychiatric: abnormal gait, alert, responsive Musculoskeletal: atrophy - BLE Laboratory Tests 12/23/16 05:40: White Blood Count 5.4, Red Blood Count 3.55L, Hemoglobin 11.4L, Hematocrit 35.2L , Mean Corpuscular Volume 99, Mean Corpuscular Hemoglobin 32.0H, Mean Corpuscular Hemoglobin Concent 32.2, Red Cell Distribution Width 12.6, Platelet Count 145L, Mean Platelet Volume 7.6, Neutrophils (%) (Auto) 66.4, Lymphocytes ( %) (Auto) 22.1, Monocytes (%) (Auto) 7.8, Eosinophils (%) (Auto) 3.2H, Basophils (%) (Auto) 0.6, Sodium Level 142, Potassium Level 3.7, Chloride Level 107, Carbon Dioxide Level 23, Anion Gap 12, Blood Urea Nitrogen 24H, Creatinine 1.3H, Estimat Glomerular Filtration Rate , Glucose Level 121H, Calcium Level 9.4 , Phosphorus Level 3.0, Magnesium Level 2.1, Total Bilirubin 0.5, Aspartate Amino Transf (AST/SGOT) 16, Alanine Aminotransferase (ALT/SGPT) 9, Alkaline Phosphatase 87, Total Protein 6.8, Albumin 2.9L, Globulin 3.9, Albumin/Globulin Ratio 0.7L Current Medications Medications (Trade) Dose Ordered Sig/Edgar Route PRN Reason Start Time Stop Time Status Last Admin Dose Admin Acetaminophen (Tylenol) 650 mg Q4H PRN ORAL FEVER 12/21/16 16:00 01/18/17 15:59 12/22/16 11:52 Albuterol/ Ipratropium (DuoNeb 0.5-3(2.5)mg/3ml) 3 ml Q4H PRN HHN Shortness of Breath 12/21/16 16:00 12/24/16 15:59 Aspirin (ASA) 81 mg DAILY ORAL 12/23/16 09:00 01/22/17 08:59 Clonidine HCl (Catapres) 0.2 mg Q6H PRN ORAL For High Blood Pressure 12/22/16 06:45 01/21/17 06:44 Finasteride (Proscar) 5 mg DAILY ORAL 12/22/16 09:00 01/21/17 08:59 12/22/16 09:03 Heparin Sodium (Porcine) (Heparin 5000 units/ml) 5,000 units EVERY 12 HOURS SUBQ 12/21/16 21:00 01/18/17 20:59 12/21/16 21:43 Levothyroxine Sodium (Synthroid) 75 mcg ACBREAKFAST ORAL 12/22/16 06:30 01/19/17 06:29 12/23/16 06:47 Nitroglycerin (Ntg) 0.4 mg Q5M PRN SL Prn Chest Pain 12/21/16 15:15 01/20/17 15:14 Ondansetron HCl (Zofran) 4 mg Q6H PRN IVP Nausea & Vomiting 12/21/16 16:00 01/18/17 15:59 Patient Own Medication (Patient's Own Med) 1 ea BID BOTH EYES 12/22/16 18:00 01/21/17 17:59 12/22/16 18:47 Patient Own Medication (Patient's Own Med) 1 ea BID OPHTHALM 12/22/16 18:00 01/21/17 17:59 12/22/16 18:47 Polyethylene Glycol (Miralax) 17 gm DAILYPRN PRN ORAL Constipation 12/21/16 16:00 01/18/17 15:59 Potassium Chloride 10 meq/ Dextrose/Sodium Chloride 1,005 ml @ 50 mls/hr Q20H6M IV 12/22/16 19:30 01/21/17 19:29 12/22/16 21:58 Risperidone (RisperDAL) 1 mg BEDTIME ORAL 12/21/16 21:00 01/19/17 20:59 12/22/16 21:58 Sertraline HCl (Zoloft) 50 mg DAILY ORAL 12/22/16 09:00 01/19/17 08:59 12/22/16 09:03 Tamsulosin HCl (Flomax) 0.4 mg BEDTIME ORAL 12/21/16 21:00 01/20/17 20:59 12/22/16 21:58 Teresita Wilson NP ([facility]anchte[facility]) Dec 23, 2016 08:44
[2016-12-23] MEDS: Aspirin Baby 81mg ORAL SCH (09:00)
[2016-12-23] MEDS: Sertraline 50mg tab ORAL SCH (09:00)
[2016-12-23] MEDS: Heparin 5000 units/ml inj SUBQ SCH ×2 (10:36→21:00)
[2016-12-23] MEDS: AZOPT 1% OPHTHALM SCH ×2 (10:37→17:58)
[2016-12-23] MEDS: COMBIGAN BOTH EYES SCH ×2 (10:37→17:58)
[2016-12-23] MEDS ORDERED: Bisacodyl EC 5mg tab ORAL ONE (11:00)
--- NOTE | 2016-12-23 11:59 | Neurology Progress Note ---
Interim History Interim History ROS Limited/Unobtainable: No Complaints: more responsive Events: more verbal today refused f, confused ,not sleeping /restless at night time Objective Physical Exam Last Vital Signs Date Time Temp Pulse Resp B/P (MAP) Pulse Ox O2 Delivery O2 Flow Rate FiO2 12/23/16 08:18 77 20 Room Air 12/23/16 08:00 97.7 157/86 93 12/21/16 20:15 21 Laboratory Tests Test 12/23/16 05:40 White Blood Count 5.4 K/UL (4.8-10.8) Red Blood Count 3.55 M/UL (4.70-6.10) L Hemoglobin 11.4 G/DL (14.2-18.0) L Hematocrit 35.2 % (42.0-52.0) L Mean Corpuscular Volume 99 FL (80-99) Mean Corpuscular Hemoglobin 32.0 PG (27.0-31.0) H Mean Corpuscular Hemoglobin Concent 32.2 G/DL (32.0-36.0) Red Cell Distribution Width 12.6 % (11.6-14.8) Platelet Count 145 K/UL (150-450) L Mean Platelet Volume 7.6 FL (6.5-10.1) Neutrophils (%) (Auto) 66.4 % (45.0-75.0) Lymphocytes (%) (Auto) 22.1 % (20.0-45.0) Monocytes (%) (Auto) 7.8 % (1.0-10.0) Eosinophils (%) (Auto) 3.2 % (0.0-3.0) H Basophils (%) (Auto) 0.6 % (0.0-2.0) Sodium Level 142 mEQ/L (135-145) Potassium Level 3.7 mEQ/L (3.4-4.9) Chloride Level 107 mEQ/L (98-107) Carbon Dioxide Level 23 mEQ/L (20-30) Anion Gap 12 (5-15) Blood Urea Nitrogen 24 mg/dL (7-23) H Creatinine 1.3 mg/dL (0.7-1.2) H Estimat Glomerular Filtration Rate mL/min (>60) Glucose Level 121 mg/dL (74-106) H Calcium Level 9.4 mg/dL (8.6-10.2) Phosphorus Level 3.0 mg/dL (2.5-4.8) Magnesium Level 2.1 mg/dL (1.7-2.5) Total Bilirubin 0.5 mg/dL (0.0-1.2) Aspartate Amino Transf (AST/SGOT) 16 U/L (5-40) Alanine Aminotransferase (ALT/SGPT) 9 U/L (3-41) Alkaline Phosphatase 87 U/L (40-129) Total Protein 6.8 g/dL (6.6-8.7) Albumin 2.9 g/dL (3.5-5.2) L Globulin 3.9 g/dL Albumin/Globulin Ratio 0.7 (1.0-2.7) L General: well developed, well nourished, no acute distress Head: normocophalic, atraumatic Neck: no rigidity Neurologic Exam Mental Status: awake, alert, other - eyes open resisting exam poor verbal output Speech: no dysarthia, other Language: other Cranial Nerve II: fundus normal, visual matt, no papilledema Cranial Nerves III, IV, : PERRLA, EOMI, pupils Cranial Nerve V: normal facial sensations, temporales function normal, masseters function normal, pterygoids function normal Cranial Nerve VII: no facial asymmetry, normal facial expressions, other - masced face Cranial Nerve VIII: normal hearing, no nystagmus Cranial Nerve IX: normal palate elevation, gag response Cranial Nerve X: no voice hoarseness Cranial Nerve XI: SCM symmetric, trapezii function normal Cranial Nerve XII: tongue midline, no tongue atrophy/fasciculations Motor System: strength 5/5, no involuntary movement, no muscle wasting, other - diffuse rigidity resist exam Sensory: normal pinprick Coordination: other Deep Tendon Reflexes: 1+ bicep (L), 1+ bicep (R), 1+ tricep (L), 1+ tricep (R) , 1+ brachioradialis (L), 1+ brachioradialis (R), 1+ knee (L), 1+ knee (R), 1+ ankle (L), 1+ ankle (R) Reflexes: mute plantar (L), mute plantar (R) Stance: other Gait: other Impression/Recommendations Problems: (1) Vascular dementia with delirium (2) s/p colon cancer resection in august 2016 (3) progresive cognitive loss, poor verbal output,abnormal gait. Status: stable, progressing Recommendations hold unessential meds, pt/ot EEG c/w encephalopathy with epileptiform activity L temporal d/w family depacote 125mg bid trazodone 50mg q hs psych f/u ok d/c home RIGOBERTO TAPIA Dec 23, 2016 11:59
--- NOTE | 2016-12-23 15:17 | General Progress Note ---
Assessment/Plan Status: stable Assessment/Plan delirium r/o anoxic brain injury per daughter the pt has been dx with this in past -dc risperdal -start zyprexa 5mg qhs -no benzo Subjective Allergies: Coded Allergies: No Known Allergies (Unverified , 12/19/16) Subjective daughter bedside. the pt is more alert. he was able to answer. the pt is not depressed and not agitated. still confused and disoriented, the daughter appealing discharge Objective Last 24 Hour Vital Signs Date Time Temp Pulse Resp B/P (MAP) Pulse Ox O2 Delivery O2 Flow Rate FiO2 12/23/16 12:00 97.6 68 18 161/94 96 Room Air 12/23/16 08:18 77 20 Room Air 12/23/16 08:00 97.7 71 18 157/86 93 Room Air 12/23/16 04:00 97.3 70 20 147/85 95 Room Air 12/23/16 00:00 97.1 89 20 102/84 90 Room Air 12/22/16 20:03 73 18 Room Air 12/22/16 20:00 97.9 66 20 123/83 93 Room Air 12/22/16 16:02 97.7 68 18 147/68 94 Room Air Intake and Output 12/23/16 12/24/16 19:00 07:00 Intake Total 120 ml Balance 120 ml Intake Oral 120 ml Laboratory Tests 12/23/16 05:40: White Blood Count 5.4, Red Blood Count 3.55L, Hemoglobin 11.4L, Hematocrit 35.2L , Mean Corpuscular Volume 99, Mean Corpuscular Hemoglobin 32.0H, Mean Corpuscular Hemoglobin Concent 32.2, Red Cell Distribution Width 12.6, Platelet Count 145L, Mean Platelet Volume 7.6, Neutrophils (%) (Auto) 66.4, Lymphocytes ( %) (Auto) 22.1, Monocytes (%) (Auto) 7.8, Eosinophils (%) (Auto) 3.2H, Basophils (%) (Auto) 0.6, Sodium Level 142, Potassium Level 3.7, Chloride Level 107, Carbon Dioxide Level 23, Anion Gap 12, Blood Urea Nitrogen 24H, Creatinine 1.3H, Estimat Glomerular Filtration Rate , Glucose Level 121H, Calcium Level 9.4 , Phosphorus Level 3.0, Magnesium Level 2.1, Total Bilirubin 0.5, Aspartate Amino Transf (AST/SGOT) 16, Alanine Aminotransferase (ALT/SGPT) 9, Alkaline Phosphatase 87, Total Protein 6.8, Albumin 2.9L, Globulin 3.9, Albumin/Globulin Ratio 0.7L Height (Feet): 5 Height (Inches): 4.00 Weight (Pounds): 151 General Appearance: no apparent distress, alert, confused, overweight Neurologic: alert, responsive, depressed affect Renata Espinosa M.D. Dec 23, 2016 15:17
[2016-12-23] MEDS: Potassium Chloride 10 MEQ in D5 1/2NS 1,000 ML IV SCH ×2 (15:57→16:32)
[2016-12-23] MEDS: cloNIDine 0.2mg Tab ORAL PRN (16:33)
[2016-12-23] MEDS: Docusate 100mg cap ORAL SCH (16:36)
[2016-12-23] MEDS: Tamsulosin 0.4mg cap ORAL SCH (21:19)
[2016-12-23] MEDS: Miralax 17gm pkt ORAL SCH (21:20)
[2016-12-24] VITALS: BP 147/54
[2016-12-24 04:00] VITALS: BP 145/87
[2016-12-24 07:50] LABS: BASOPHILS % (AUTO) 0.8 % (0.0-2.0); EOSINOPHILS % (AUTO) 3.3 % (0.0-3.0); LYMPHOCYTES % (AUTO) 25.8 % (20.0-45.0); MEAN CORPUSCULAR HGB CONC 33.4 G/DL (32.0-36.0); MEAN CORPUSCULAR VOLUME 99 FL (80-99); MEAN PLATELET VOLUME 7.4 FL (6.5-10.1); NEUTROPHILS % (AUTO) 60.1 % (45.0-75.0); PLATELET COUNT 152 K/UL (150-450); RED BLOOD COUNT 3.57 M/UL (4.70-6.10); RED CELL DISTRIBUTION WIDTH 12.6 % (11.6-14.8); WHITE BLOOD COUNT 4.8 K/UL (4.8-10.8)
[2016-12-24 08:00] VITALS: BP 125/74
[2016-12-24] MEDS: AZOPT 1% OPHTHALM SCH ×2 (08:16→17:25)
[2016-12-24] MEDS: COMBIGAN BOTH EYES SCH ×2 (08:16→17:24)
[2016-12-24] MEDS: Heparin 5000 units/ml inj SUBQ SCH ×2 (08:16→21:00)
[2016-12-24] MEDS: Aspirin Baby 81mg ORAL SCH (08:17)
[2016-12-24] MEDS: Docusate 100mg cap ORAL SCH ×2 (08:17→17:24)
[2016-12-24] MEDS: Sertraline 50mg tab ORAL SCH (08:17)
[2016-12-24 09:00] LABS: ANION GAP 13 (5-15); CALCIUM 9.4 mg/dL (8.6-10.2); CARBON DIOXIDE 22 mEQ/L (20-30); CHLORIDE 105 mEQ/L (98-107); CREATININE 1.2 mg/dL (0.7-1.2); HEMOLYSIS 18; POTASSIUM 4.1 mEQ/L (3.4-4.9); SODIUM 140 mEQ/L (135-145)
[2016-12-24] MEDS: Potassium Chloride 10 MEQ in D5 1/2NS 1,000 ML IV SCH (11:32)
[2016-12-24 12:00] VITALS: BP 126/85
--- NOTE | 2016-12-24 14:10 | Pulmonology Progress Note ---
Assessment/Plan Assessment/Plan ASSESSMENT acute toxic metabolic encephalopathy on vascular dementia with delusion delirium s/p non syncopal fall chest pain costochondritis left ribs fracture CAD with hx of CABG HTN colon Ca , s/p resection mild to moderate MR anemia progressive cognitive loss constipation CRI PLAN OF CARE MS floor gentle IVF mental status improving CT head no acute IC pathology neuro and psych follows per psych off Risperdal, on Zyprexa, recommended to keep off benzo CXR no acute findings documented L rib fracture per ED doctor but no evidence of rib fracture on CXR will do rib series ECHO with pEF 60-65% and mild to moderate MR, mild AR continue ASA BP stable, monitor, renal US no hydro, 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, creat with no change with IV hydration cardio follows serial troponin negative ECHO with PEF no acute ischemic changes on ECG no further workup needed as per cardio, since similar symptoms in the past as per daughter report No LOC, no blackout with fall EEG reviewed with neuro - L side slowing c/w mild encephalopathy per neuro patient has vascular dementia with delusion and progressive cognitive decline PT/OT fall precautions bowel regimen daughter appealed 12/22 awaiting [facility] medicare decision plan dc home with hospice services ; daughter only wants home monitor HH transfuse prn, goal to keep Hgb above 8 pain management case discussed and evaluated by supervising physician Subjective Allergies: Coded Allergies: No Known Allergies (Unverified , 12/19/16) Subjective no chest pain, no SOB mental status improving, conversed with daughter and me this morning daughter reported no BM x 5 days Objective Last 24 Hour Vital Signs Date Time Temp Pulse Resp B/P (MAP) Pulse Ox O2 Delivery O2 Flow Rate FiO2 12/24/16 12:00 97.0 60 20 126/85 96 Room Air 12/24/16 08:00 97.0 64 18 125/74 95 Room Air 12/24/16 04:00 98.1 64 22 145/87 94 Room Air 12/24/16 00:00 98.2 63 19 147/54 94 Room Air 12/23/16 20:00 97.1 71 20 129/86 95 Room Air 12/23/16 19:17 91 20 Room Air 12/23/16 17:42 89 138/77 12/23/16 16:33 173/107 12/23/16 16:00 97.3 77 19 181/100 96 Room Air Intake and Output 12/24/16 12/25/16 19:00 07:00 Intake Total 300 ml Balance 300 ml IV Total 300 ml Objective General Appearance: no acute distress, other - bedridden, elderly Chilean speaking male in NAD HEENT: normocephalic, atraumatic, mucous membranes moist Respiratory/Chest: lungs clear - with moderate air entry Cardiovascular: normal peripheral pulses, normal rate, regular rhythm Abdomen: soft, non tender Extremities: no edema, pedal pulses normal Neurologic/Psychiatric: abnormal gait, alert, responsive Musculoskeletal: atrophy - BLE Laboratory Tests 12/24/16 05:20: White Blood Count 4.8, Red Blood Count 3.57L, Hemoglobin 11.8L, Hematocrit 35.3L , Mean Corpuscular Volume 99, Mean Corpuscular Hemoglobin 33.0H, Mean Corpuscular Hemoglobin Concent 33.4, Red Cell Distribution Width 12.6, Platelet Count 152, Mean Platelet Volume 7.4, Neutrophils (%) (Auto) 60.1, Lymphocytes (% ) (Auto) 25.8, Monocytes (%) (Auto) 10.0, Eosinophils (%) (Auto) 3.3H, Basophils (%) (Auto) 0.8, Sodium Level 140, Potassium Level 4.1, Chloride Level 105, Carbon Dioxide Level 22, Anion Gap 13, Blood Urea Nitrogen 18, Creatinine 1.2, Estimat Glomerular Filtration Rate , Glucose Level 108H, Calcium Level 9.4 Current Medications Medications (Trade) Dose Ordered Sig/Edgar Route PRN Reason Start Time Stop Time Status Last Admin Dose Admin Acetaminophen (Tylenol) 650 mg Q4H PRN ORAL FEVER 12/21/16 16:00 01/18/17 15:59 12/22/16 11:52 Albuterol/ Ipratropium (DuoNeb 0.5-3(2.5)mg/3ml) 3 ml Q4H PRN HHN Shortness of Breath 12/21/16 16:00 12/24/16 15:59 Aspirin (ASA) 81 mg DAILY ORAL 12/23/16 09:00 01/22/17 08:59 12/24/16 08:17 Clonidine HCl (Catapres) 0.2 mg Q6H PRN ORAL For High Blood Pressure 12/22/16 06:45 01/21/17 06:44 12/23/16 16:33 Docusate Sodium (Colace) 100 mg TWICE A DAY ORAL 12/23/16 18:00 01/22/17 17:59 12/24/16 08:17 Finasteride (Proscar) 5 mg DAILY ORAL 12/22/16 09:00 01/21/17 08:59 12/24/16 08:17 Heparin Sodium (Porcine) (Heparin 5000 units/ml) 5,000 units EVERY 12 HOURS SUBQ 12/21/16 21:00 01/18/17 20:59 12/24/16 08:16 Levothyroxine Sodium (Synthroid) 75 mcg ACBREAKFAST ORAL 12/22/16 06:30 01/19/17 06:29 12/24/16 05:55 Nitroglycerin (Ntg) 0.4 mg Q5M PRN SL Prn Chest Pain 12/21/16 15:15 01/20/17 15:14 Olanzapine (ZyPREXA) 5 mg BEDTIME ORAL 12/23/16 21:00 01/22/17 20:59 12/23/16 21:19 Ondansetron HCl (Zofran) 4 mg Q6H PRN IVP Nausea & Vomiting 12/21/16 16:00 01/18/17 15:59 Patient Own Medication (Patient's Own Med) 1 ea BID BOTH EYES 12/22/16 18:00 01/21/17 17:59 12/24/16 08:16 Patient Own Medication (Patient's Own Med) 1 ea BID OPHTHALM 12/22/16 18:00 01/21/17 17:59 12/24/16 08:16 Polyethylene Glycol (Miralax) 17 gm BEDTIME ORAL 12/23/16 21:00 01/22/17 20:59 12/23/16 21:20 Polyethylene Glycol (Miralax) 17 gm DAILYPRN PRN ORAL Constipation 12/21/16 16:00 01/18/17 15:59 Potassium Chloride 10 meq/ Dextrose/Sodium Chloride 1,005 ml @ 50 mls/hr Q20H6M IV 12/22/16 19:30 01/21/17 19:29 12/24/16 11:32 Sertraline HCl (Zoloft) 50 mg DAILY ORAL 12/22/16 09:00 01/19/17 08:59 9/9/17 08:17 Tamsulosin HCl (Flomax) 0.4 mg BEDTIME ORAL 12/21/16 21:00 01/20/17 20:59 12/23/16 21:19 [facility] HospitalTeresita white NP Dec 24, 2016 14:10
--- NOTE | 2016-12-24 14:57 | Cardiology Progress Note ---
Assessment/Plan Problem List: (1) Diabetes (2) Colon cancer (3) Altered level of consciousness (4) Chest pain (5) s/p colon cancer resection in august 2016 (6) Vascular dementia with delirium (7) Left rib fracture Status: stable, progressing Status Narrative Chest pain - Has ruled out for NH w/ negative cardiac enzymes. s/p fall w/ rib fx - chest pain appears musculoskeletal. Continues w/ AMS - Assessment/Plan Analgesics prn for CP/ musculoskeletal. Continue asa, ? start statin, given hx of CAD Further evaluation of encephalopathy per neurology Subjective ROS Limited/Unobtainable: Yes Subjective Cardiology for Dr. Leroy Pt sedated. Per daughter, pt w/ intermittent L CP, pain w/ movement Objective Last 24 Hour Vital Signs Date Time Temp Pulse Resp B/P (MAP) Pulse Ox O2 Delivery O2 Flow Rate FiO2 12/24/16 12:00 97.0 60 20 126/85 96 Room Air 12/24/16 08:00 97.0 64 18 125/74 95 Room Air 12/24/16 04:00 98.1 64 22 145/87 94 Room Air 12/24/16 00:00 98.2 63 19 147/54 94 Room Air 12/23/16 20:00 97.1 71 20 129/86 95 Room Air 12/23/16 19:17 91 20 Room Air 12/23/16 17:42 89 138/77 12/23/16 16:33 173/107 12/23/16 16:00 97.3 77 19 181/100 96 Room Air General Appearance: WD/WN, lethargic, obese EENT: PERRL/EOMI Neck: supple, no JVD Rhythm: NSR Cardiovascular: normal rate, systolic murmur Respiratory/Chest: lungs clear, no respiratory distress Abdomen: non tender, soft Extremities: other - mild edema/ erythema at R forearm old iv site Intake and Output 12/24/16 12/25/16 19:00 07:00 Intake Total 300 ml Balance 300 ml IV Total 300 ml Laboratory Tests Test 12/24/16 05:20 White Blood Count 4.8 K/UL (4.8-10.8) Red Blood Count 3.57 M/UL (4.70-6.10) L Hemoglobin 11.8 G/DL (14.2-18.0) L Hematocrit 35.3 % (42.0-52.0) L Mean Corpuscular Volume 99 FL (80-99) Mean Corpuscular Hemoglobin 33.0 PG (27.0-31.0) H Mean Corpuscular Hemoglobin Concent 33.4 G/DL (32.0-36.0) Red Cell Distribution Width 12.6 % (11.6-14.8) Platelet Count 152 K/UL (150-450) Mean Platelet Volume 7.4 FL (6.5-10.1) Neutrophils (%) (Auto) 60.1 % (45.0-75.0) Lymphocytes (%) (Auto) 25.8 % (20.0-45.0) Monocytes (%) (Auto) 10.0 % (1.0-10.0) Eosinophils (%) (Auto) 3.3 % (0.0-3.0) H Basophils (%) (Auto) 0.8 % (0.0-2.0) Sodium Level 140 mEQ/L (135-145) Potassium Level 4.1 mEQ/L (3.4-4.9) Chloride Level 105 mEQ/L (98-107) Carbon Dioxide Level 22 mEQ/L (20-30) Anion Gap 13 (5-15) Blood Urea Nitrogen 18 mg/dL (7-23) Creatinine 1.2 mg/dL (0.7-1.2) Estimat Glomerular Filtration Rate mL/min (>60) Glucose Level 108 mg/dL (74-106) H Calcium Level 9.4 mg/dL (8.6-10.2) SHAJI SIMMONS Dec 24, 2016 14:57
[2016-12-24 16:00] VITALS: BP 131/74
[2016-12-24 20:00] VITALS: BP 140/78
[2016-12-24] MEDS: Miralax 17gm pkt ORAL SCH (21:09)
[2016-12-24] MEDS: Tamsulosin 0.4mg cap ORAL SCH (21:09)
[2016-12-25] MEDS: cloNIDine 0.2mg Tab ORAL PRN (03:32)
[2016-12-25 04:00] VITALS: BP 182/90
[2016-12-25 08:00] VITALS: BP 119/65
[2016-12-25] MEDS: Potassium Chloride 10 MEQ in D5 1/2NS 1,000 ML IV SCH (08:30)
[2016-12-25] MEDS: Docusate 100mg cap ORAL SCH ×2 (08:32→17:08)
[2016-12-25] MEDS: Sertraline 50mg tab ORAL SCH (08:32)
[2016-12-25] MEDS: COMBIGAN BOTH EYES SCH ×2 (08:32→17:12)
[2016-12-25] MEDS: Aspirin Baby 81mg ORAL SCH (08:32)
[2016-12-25] MEDS: AZOPT 1% OPHTHALM SCH ×2 (08:32→17:13)
[2016-12-25] MEDS: Heparin 5000 units/ml inj SUBQ SCH ×2 (08:33→21:00)
[2016-12-25] MEDS: Miralax 17gm pkt ORAL SCH (08:42)
[2016-12-25 10:42] LABS: VITAMIN D 25-OH TOTAL 45 ng/mL (.)
[2016-12-25] MEDS: D5 1/2NS w/KCL 10meq 1,000 ML IV SCH (11:23)
--- NOTE | 2016-12-25 11:27 | Pulmonology Progress Note ---
Assessment/Plan Assessment/Plan ASSESSMENT acute toxic metabolic encephalopathy on vascular dementia with delusion s/p non syncopal fall musculoskeletal chest pain acute left rib fracture - ,, 11 possible costochondritis CAD with hx of CABG HTN colon Ca , s/p resection mild to moderate MR anemia progressive cognitive loss constipation CRI hypothyroidism dysphagia aspiration risk PLAN OF CARE MS floor gentle IVF mental status improving CT head no acute IC pathology neuro and psych follows per psych off Risperdal, on Zyprexa, recommended to keep off benzo CXR no acute findings documented L rib fracture per ED doctor but no evidence of rib fracture on CXR rib series - done 12/25 with positive for acute left ninth 10th and 11th rib fractures. ECHO with pEF 60-65% and mild to moderate MR, mild AR continue ASA BP stable, monitor, renal US no hydro, likely CRI, creat with no change with IV hydration cardio follows serial troponin negative ECHO with PEF no acute ischemic changes on ECG no further workup needed as per cardio, since similar symptoms in the past as per daughter report No LOC, no blackout with fall EEG reviewed with neuro - L side slowing c/w mild encephalopathy per neuro patient has vascular dementia with delusion and progressive cognitive decline TSH WNL, continue current dose of levothyroxine PT/OT fall precautions bowel regimen, add Lactulose daughter appealed 12/22 awaiting for medicare decision plan dc home with hospice services ; daughter only wants home monitor HH transfuse prn, goal to keep Hgb above 8 pain management reviewed medications list: patient on Zyprexa at night and in am on Zoloft, BSSE with evident of dysphagia and aspiration risk VSSE not done strict aspiration precautions with 1 to 1 feeding, elevate HOB diet for quality of life, thickener to all thin liquids plan to dc home with HH services after medicare decision case discussed and evaluated by supervising physician Subjective Allergies: Coded Allergies: No Known Allergies (Unverified , 12/19/16) Subjective no chest pain, no SOB daughter stated that last night patient woke up in the middle of the night and was confused and anxious also stated no BM yet patient is currently asleep Objective Last 24 Hour Vital Signs Date Time Temp Pulse Resp B/P (MAP) Pulse Ox O2 Delivery O2 Flow Rate FiO2 12/25/16 08:00 97.2 56 20 119/65 95 Room Air 12/25/16 04:19 97.3 12/25/16 04:00 97.9 65 19 182/90 96 Room Air 12/25/16 03:32 182/90 12/24/16 20:43 88 20 Room Air 12/24/16 20:00 97.3 65 20 140/78 95 Room Air 12/24/16 16:00 97.2 66 18 131/74 96 Room Air 12/24/16 12:00 97.0 60 20 126/85 96 Room Air Objective General Appearance: no acute distress, bedridden, elderly [place] male in NAD HEENT: normocephalic, atraumatic, mucous membranes moist Respiratory/Chest: lungs clear with moderate air entry Cardiovascular: normal peripheral pulses, normal rate, regular rhythm Abdomen: soft, non tender Extremities: no edema, pedal pulses normal Neurologic/Psychiatric: abnormal gait, Musculoskeletal: atrophy - BLE Current Medications Medications (Trade) Dose Ordered Sig/Edgar Route PRN Reason Start Time Stop Time Status Last Admin Dose Admin Acetaminophen (Tylenol) 650 mg Q4H PRN ORAL FEVER 12/21/16 16:00 01/18/17 15:59 12/25/16 03:20 Aspirin (ASA) 81 mg DAILY ORAL 12/23/16 09:00 01/22/17 08:59 12/25/16 08:32 Clonidine HCl (Catapres) 0.2 mg Q6H PRN ORAL For High Blood Pressure 12/22/16 06:45 01/21/17 06:44 12/25/16 03:32 Dextrose/ Electrolytes 1,000 ml @ 50 mls/hr Q20H IV 12/25/16 10:30 01/24/17 10:29 Docusate Sodium (Colace) 100 mg TWICE A DAY ORAL 12/23/16 18:00 01/22/17 17:59 12/25/16 08:32 Finasteride (Proscar) 5 mg DAILY ORAL 12/22/16 09:00 01/21/17 08:59 12/25/16 08:32 Heparin Sodium (Porcine) (Heparin 5000 units/ml) 5,000 units EVERY 12 HOURS SUBQ 12/21/16 21:00 01/18/17 20:59 12/24/16 08:16 Levothyroxine Sodium (Synthroid) 75 mcg ACBREAKFAST ORAL 12/22/16 06:30 01/19/17 06:29 12/25/16 05:54 Nitroglycerin (Ntg) 0.4 mg Q5M PRN SL Prn Chest Pain 12/21/16 15:15 01/20/17 15:14 Olanzapine (ZyPREXA) 5 mg BEDTIME ORAL 12/23/16 21:00 01/22/17 20:59 12/24/16 21:09 Ondansetron HCl (Zofran) 4 mg Q6H PRN IVP Nausea & Vomiting 12/21/16 16:00 01/18/17 15:59 Patient Own Medication (Patient's Own Med) 1 ea BID BOTH EYES 12/22/16 18:00 01/21/17 17:59 12/25/16 08:32 Patient Own Medication (Patient's Own Med) 1 ea BID OPHTHALM 12/22/16 18:00 01/21/17 17:59 12/25/16 08:32 Polyethylene Glycol (Miralax) 17 gm BEDTIME ORAL 12/23/16 21:00 01/22/17 20:59 12/25/16 08:42 Polyethylene Glycol (Miralax) 17 gm DAILYPRN PRN ORAL Constipation 12/21/16 16:00 01/18/17 15:59 Sertraline HCl (Zoloft) 50 mg DAILY ORAL 12/22/16 09:00 01/19/17 08:59 12/25/16 08:32 Tamsulosin HCl (Flomax) 0.4 mg BEDTIME ORAL 12/21/16 21:00 01/20/17 20:59 12/24/16 21:09 Teresita Wilson NP (Vanchtein) Dec 25, 2016 11:27
[2016-12-25 12:00] VITALS: BP 120/62
[2016-12-25] MEDS ORDERED: Lactulose 20gm/30ml UDC ORAL ONE (12:00)
[2016-12-25] MEDS ORDERED: Bisacodyl EC 5mg tab ORAL PRN (12:00)
[2016-12-25 16:00] VITALS: BP 153/70
[2016-12-25 20:00] VITALS: BP 139/80
[2016-12-25] MEDS: Tamsulosin 0.4mg cap ORAL SCH (21:52)
--- NOTE | 2016-12-25 23:19 | General Progress Note ---
Assessment/Plan Status: doing well, stable, progressing Assessment/Plan delirium r/o anoxic brain injury per daughter the pt has been dx with this in past -dc risperdal -start zyprexa 5mg qhs -no benzo Subjective Allergies: Coded Allergies: No Known Allergies (Unverified , 12/19/16) Subjective family at bedside. the pt is calmer. he was agitated around 5pm and attempting to come out of bed. medication was given earlier Objective Last 24 Hour Vital Signs Date Time Temp Pulse Resp B/P (MAP) Pulse Ox O2 Delivery O2 Flow Rate FiO2 12/25/16 20:00 97.2 66 20 139/80 96 Room Air 12/25/16 16:00 97.3 64 26 153/70 96 Room Air 12/25/16 12:00 97.9 57 18 120/62 98 Room Air 12/25/16 08:00 97.2 56 20 119/65 95 Room Air 12/25/16 04:19 97.3 12/25/16 04:00 97.9 65 19 182/90 96 Room Air 12/25/16 03:32 182/90 Intake and Output 12/25/16 12/26/16 19:00 07:00 Intake Total 700 ml 200 ml Balance 700 ml 200 ml IV Total 700 ml 200 ml Height (Feet): 5 Height (Inches): 4.00 Weight (Pounds): 151 General Appearance: no apparent distress, alert, overweight Neurologic: alert, responsive, depressed affect Renata Espinosa M.D. Dec 25, 2016 23:19
[2016-12-26] VITALS: BP 141/75
[2016-12-26 04:00] VITALS: BP 146/80
[2016-12-26] MEDS: D5 1/2NS w/KCL 10meq 1,000 ML IV SCH (04:30)
[2016-12-26 07:32] LABS: LYMPHOCYTES % (AUTO) 24.5 % (20.0-45.0); MEAN CORPUSCULAR HEMOGLOBIN 32.5 PG (27.0-31.0); MEAN CORPUSCULAR HGB CONC 32.7 G/DL (32.0-36.0); MEAN CORPUSCULAR VOLUME 99 FL (80-99); MEAN PLATELET VOLUME 6.9 FL (6.5-10.1); MONOCYTES % (AUTO) 9.4 % (1.0-10.0); NEUTROPHILS % (AUTO) 61.1 % (45.0-75.0); PLATELET COUNT 161 K/UL (150-450); RED BLOOD COUNT 3.48 M/UL (4.70-6.10); RED CELL DISTRIBUTION WIDTH 12.3 % (11.6-14.8); WHITE BLOOD COUNT 5.5 K/UL (4.8-10.8)
[2016-12-26 07:55] LABS: ANION GAP 11 (5-15); CALCIUM 9.5 mg/dL (8.6-10.2); CARBON DIOXIDE 24 mEQ/L (20-30); CHLORIDE 105 mEQ/L (98-107); CREATININE 1.2 mg/dL (0.7-1.2); HEMOLYSIS 20; SODIUM 140 mEQ/L (135-145)
[2016-12-26 08:15] VITALS: BP 128/77
--- NOTE | 2016-12-26 08:15 | Progress Note ---
SUBJECTIVE: The daughter is at bedside and happy about the patient's condition. The patient is appealing the discharge. She wants to place the patient hospice. The patient is alert, less confused, was able to converse more than yesterday, compliant with medication. MENTAL STATUS EXAMINATION: The patient is alert and oriented to self. He recognized his daughter. Mood is neutral. Affect is full range. Congruent with mood. Thought process, there is a paucity of thought content. Thought content, no suicidal or homicidal ideation. Memory, concentration, attention is impaired. Insight and judgment is nonexistent. ASSESSMENT: 1. Encephalopathy. 2. Chest pain. 3. Coronary artery disease. 4. Hypertension. 5. Colon cancer, status post resection. PLAN: 1. The patient will be continued on Zyprexa. 2. We will continue to follow and readjust the medications. Renata Espinosa M.D. DR: Jocelyn JOB#: [id number] CC:
[2016-12-26] MEDS: Heparin 5000 units/ml inj SUBQ SCH (09:34)
[2016-12-26] MEDS: Sertraline 50mg tab ORAL SCH (09:34)
[2016-12-26] MEDS: COMBIGAN BOTH EYES SCH (09:35)
[2016-12-26] MEDS: Aspirin Baby 81mg ORAL SCH (09:35)
[2016-12-26] MEDS: AZOPT 1% OPHTHALM SCH (09:35)
[2016-12-26] MEDS: Docusate 100mg cap ORAL SCH (09:35)
--- NOTE | 2016-12-26 10:28 | Diagnostic Imaging Report ---
Indication: PAIN Technique: Oval views of the bilateral ribs Comparison: None Findings: There is an old healed fracture deformity of the lateral left ninth rib. Question old healed fracture deformity of the right lateral fourth rib there are acute fractures of the posterior lateral left ninth, 10th, 11th ribs. No acute right rib fractures are demonstrated. No gross pneumothorax. Impression: Positive for acute left ninth 10th and 11th rib fractures. Dr. Najera notified at the time of interpretation
[2016-12-26 12:15] VITALS: BP 103/75
--- NOTE | 2016-12-26 14:17 | Geriatric Progress Note ---
Assessment/Plan Assessment/Plan the pt is more alert and progressing. the pt is less delirious and going to be discharged today Discussed with: patient, family Subjective Mood/Memory: Reports: anxiety, depressed feelings Sleep: Reports: sleeps well Subjective the pt is calmer, more alert and lucid less confused was able to walk today. Geriatric Geriatric Last 24 Hour Vital Signs Date Time Temp Pulse Resp B/P (MAP) Pulse Ox O2 Delivery O2 Flow Rate FiO2 12/26/16 12:15 97.3 65 21 103/75 97 Room Air 12/26/16 08:15 97.7 71 20 128/77 97 Room Air 12/26/16 04:00 98.8 65 19 146/80 92 Room Air 12/26/16 00:00 97.7 71 20 141/75 96 Room Air 12/25/16 20:00 97.2 66 20 139/80 96 Room Air 12/25/16 16:00 97.3 64 26 153/70 96 Room Air Intake and Output 12/26/16 12/27/16 19:00 07:00 Intake Total 240 ml Balance 240 ml Intake Oral 240 ml Laboratory Tests Test 12/26/16 06:45 White Blood Count 5.5 K/UL (4.8-10.8) Red Blood Count 3.48 M/UL (4.70-6.10) L Hemoglobin 11.3 G/DL (14.2-18.0) L Hematocrit 34.5 % (42.0-52.0) L Mean Corpuscular Volume 99 FL (80-99) Mean Corpuscular Hemoglobin 32.5 PG (27.0-31.0) H Mean Corpuscular Hemoglobin Concent 32.7 G/DL (32.0-36.0) Red Cell Distribution Width 12.3 % (11.6-14.8) Platelet Count 161 K/UL (150-450) Mean Platelet Volume 6.9 FL (6.5-10.1) Neutrophils (%) (Auto) 61.1 % (45.0-75.0) Lymphocytes (%) (Auto) 24.5 % (20.0-45.0) Monocytes (%) (Auto) 9.4 % (1.0-10.0) Eosinophils (%) (Auto) 4.0 % (0.0-3.0) H Basophils (%) (Auto) 1.0 % (0.0-2.0) Sodium Level 140 mEQ/L (135-145) Potassium Level 4.0 mEQ/L (3.4-4.9) Chloride Level 105 mEQ/L (98-107) Carbon Dioxide Level 24 mEQ/L (20-30) Anion Gap 11 (5-15) Blood Urea Nitrogen 16 mg/dL (7-23) Creatinine 1.2 mg/dL (0.7-1.2) Estimat Glomerular Filtration Rate mL/min (>60) Glucose Level 134 mg/dL (74-106) H Calcium Level 9.5 mg/dL (8.6-10.2) Current Medications Medications (Trade) Dose Ordered Sig/Edgar Route PRN Reason Start Time Stop Time Status Last Admin Dose Admin Acetaminophen (Tylenol) 650 mg Q4H PRN ORAL FEVER 12/21/16 16:00 01/18/17 15:59 12/25/16 03:20 Aspirin (ASA) 81 mg DAILY ORAL 12/23/16 09:00 01/22/17 08:59 12/26/16 09:35 Bisacodyl (Dulcolax) 5 mg DAILYPRN PRN ORAL Constipation 12/25/16 12:00 01/24/17 11:59 Clonidine HCl (Catapres) 0.2 mg Q6H PRN ORAL For High Blood Pressure 12/22/16 06:45 01/21/17 06:44 12/25/16 03:32 Dextrose/ Electrolytes 1,000 ml @ 50 mls/hr Q20H IV 12/25/16 10:30 01/24/17 10:29 12/26/16 04:30 Docusate Sodium (Colace) 100 mg TWICE A DAY ORAL 12/23/16 18:00 01/22/17 17:59 12/26/16 09:35 Finasteride (Proscar) 5 mg DAILY ORAL 12/22/16 09:00 01/21/17 08:59 12/26/16 09:34 Heparin Sodium (Porcine) (Heparin 5000 units/ml) 5,000 units EVERY 12 HOURS SUBQ 12/21/16 21:00 01/18/17 20:59 12/26/16 09:34 Levothyroxine Sodium (Synthroid) 75 mcg ACBREAKFAST ORAL 12/22/16 06:30 01/19/17 06:29 12/26/16 05:39 Nitroglycerin (Ntg) 0.4 mg Q5M PRN SL Prn Chest Pain 12/21/16 15:15 01/20/17 15:14 Olanzapine (ZyPREXA) 5 mg BEDTIME ORAL 12/23/16 21:00 01/22/17 20:59 12/25/16 18:58 Ondansetron HCl (Zofran) 4 mg Q6H PRN IVP Nausea & Vomiting 12/21/16 16:00 01/18/17 15:59 Patient Own Medication (Patient's Own Med) 1 ea BID BOTH EYES 12/22/16 18:00 01/21/17 17:59 12/26/16 09:35 Patient Own Medication (Patient's Own Med) 1 ea BID OPHTHALM 12/22/16 18:00 01/21/17 17:59 12/26/16 09:35 Polyethylene Glycol (Miralax) 17 gm BEDTIME ORAL 12/23/16 21:00 01/22/17 20:59 12/25/16 08:42 Polyethylene Glycol (Miralax) 17 gm DAILYPRN PRN ORAL Constipation 12/21/16 16:00 01/18/17 15:59 Sertraline HCl (Zoloft) 50 mg DAILY ORAL 12/22/16 09:00 01/19/17 08:59 12/26/16 09:34 Tamsulosin HCl (Flomax) 0.4 mg BEDTIME ORAL 12/21/16 21:00 01/20/17 20:59 12/25/16 21:52 Height (Feet): 5 Height (Inches): 4.00 Weight (Pounds): 151 General Appearance: well appearing, no apparent distress, alert, good eye contact Neurologic: alert, responsive Psychiatric Behavior: cooperative Orientation: person, place, situation Affect: appropriate Insight: Renata Decker M.D. Dec 26, 2016 14:17
--- NOTE | 2016-12-26 14:50 | Pulmonology Progress Note ---
Assessment/Plan Problems: (1) Altered level of consciousness (2) Costochondritis (3) Hypertension (4) Diabetes mellitus (5) Left rib fracture (6) At high risk for aspiration (7) Colon cancer (8) Advanced dementia Assessment/Plan medicare agreed with discharge family agreed with hospice care at home Subjective ROS Limited/Unobtainable: No Constitutional: Reports: no symptoms Respiratory: Reports: no symptoms Cardiovascular: Reports: no symptoms Allergies: Coded Allergies: No Known Allergies (Unverified , 12/19/16) Objective Last 24 Hour Vital Signs Date Time Temp Pulse Resp B/P (MAP) Pulse Ox O2 Delivery O2 Flow Rate FiO2 12/26/16 12:15 97.3 65 21 103/75 97 Room Air 12/26/16 08:15 97.7 71 20 128/77 97 Room Air 12/26/16 04:00 98.8 65 19 146/80 92 Room Air 12/26/16 00:00 97.7 71 20 141/75 96 Room Air 12/25/16 20:00 97.2 66 20 139/80 96 Room Air 12/25/16 16:00 97.3 64 26 153/70 96 Room Air Intake and Output 12/26/16 12/27/16 18:59 06:59 Intake Total 240 ml Balance 240 ml Intake Oral 240 ml General Appearance: WD/WN HEENT: normocephalic, anicteric Respiratory/Chest: chest wall non-tender, lungs clear Cardiovascular: normal peripheral pulses, regular rhythm, no JVD Abdomen: soft, non tender Genitourinary: normal external genitalia Skin: no rash Laboratory Tests 12/26/16 06:45: White Blood Count 5.5, Red Blood Count 3.48L, Hemoglobin 11.3L, Hematocrit 34.5L , Mean Corpuscular Volume 99, Mean Corpuscular Hemoglobin 32.5H, Mean Corpuscular Hemoglobin Concent 32.7, Red Cell Distribution Width 12.3, Platelet Count 161, Mean Platelet Volume 6.9, Neutrophils (%) (Auto) 61.1, Lymphocytes (% ) (Auto) 24.5, Monocytes (%) (Auto) 9.4, Eosinophils (%) (Auto) 4.0H, Basophils (%) (Auto) 1.0, Sodium Level 140, Potassium Level 4.0, Chloride Level 105, Carbon Dioxide Level 24, Anion Gap 11, Blood Urea Nitrogen 16, Creatinine 1.2, Estimat Glomerular Filtration Rate , Glucose Level 134H, Calcium Level 9.5 RODRIGUEZ DEL RIO Dec 26, 2016 14:49
--- NOTE | 2016-12-27 11:11 | Discharge Summary ---
Discharge Summary Hospital Course Date of Admission Dec 19, 2016 at 17:05 Date of Discharge Dec 26, 2016 at 14:35 Admitting Diagnosis CHEST PAIN, ALOC HPI Sam Fairchild is a 86 year old male who was admitted on Dec 19, 2016 at 17:05 for Chest Pain, Altered Level Of Consciousness Hospital Course dc summary #[id number] Discharge Medications Continued Medications: Aspirin* (Aspir 81*) 81 Mg Tablet.dr 81 MG ORAL BID, TAB Brimonidine Tartrate/Timolol (Combigan Eye Drops) 5 Ml Drops 5 ML OP BID, ML Brinzolamide (Azopt) 10 Ml Drops.susp 10 ML OP BID Clonazepam* (Klonopin*) 0.5 Mg Tablet 0.5 MG ORAL DAILY, #15 TAB 0 Refills Esomeprazole Magnesium (Nexium) 40 Mg Capsule.dr 40 MG ORAL DAILY, CAP Ferrous Sulfate (Slow Release Iron) 160 Mg Tablet.er 160 MG PO DAILY, TAB Finasteride* (Proscar*) 5 Mg Tablet 0.5 ML ORAL DAILY, #30 TAB 0 Refills Fluocinonide* (Lidex*) 15 Gm Cr 1 APPLIC TOPIC PRN PRN for Itching, #15 GM 0 Refills for scalp itching Hydroxyzine Hcl (Hydroxyzine Hcl) 25 Mg Tablet 25 MG PO BID PRN for Itching, TAB Levothyroxine Sodium* (Levothyroxine Sodium*) 75 Mcg Tablet 75 MCG ORAL DAILY, TAB Take in the morning on an empty stomach, at least 30 minutes before food. Metformin Hcl* (Metformin Hcl*) 500 Mg Tablet 500 MG ORAL TWICE A DAY, TAB Midodrine* (Proamatine*) 2.5 Mg Tablet 2.5 MG ORAL BID, TAB Nitroglycerin (Nitrostat) 0.4 Mg Tab.subl 0.4 MG SL PRN, TAB Rosuvastatin Calcium* (Crestor*) 40 Mg Tablet 40 MG ORAL DAILY, TAB Sertraline Hcl* (Sertraline Hcl*) 25 Mg Tablet 50 MG ORAL DAILY, TAB Silodusin (Rapaflo) 8 Mg Capsule 1 EA PO DAILY, EA Solifenacin Succinate* (Vesicare*) 5 Mg Tablet 5 MG ORAL DAILY, TAB Vitamin B Complex (B Complex) 1 Each Tablet 1 TAB ORAL DAILY, #30 TAB 0 Refills Vitamin D (Vitamin D3) 400 Unit Tablet 2000 UNITS ORAL DAILY, TAB Zolpidem Tartrate* (Zolpidem Tartrate*) 10 Mg Tablet 10 MG ORAL BEDTIME PRN for Insomnia, TAB 0 Refills Discharge Discharge Disposition Patient was discharged to Home with Hospice (50) Discharge Diagnoses: Steve (Sophia)Teresita NP Dec 27, 2016 11:11
--- NOTE | 2016-12-27 21:16 | Discharge Summary 2 SIG ---
DATE OF ADMISSION: 12/19/2016 DATE OF DISCHARGE: 12/26/2016 Reason for Admission: 86-year-old male, who was recently was diagnosed with colon cancer and undergone resection in August 2016, with past medical history also significant for hypertension , presented to [facility] for altered level of consciousness. The patient fell two nights ago. He was unable to sleep for the past three days. Family gave him a dose of benzodiazepine, however, the patient still was not able to sleep. He was not eating well and was weak, according to family reports. Patient complained of chest pain. In the emergency department, CT of the head was negative for any acute intracranial pathology. Chest x-ray revealed possible evidence of left rib fracture. Abdominal x-ray revealed osteopenic bones, nonspecific bowel gas pattern, and surgical sutures were noted on the right side of the abdomen; however, no acute findings were noted. The patient had no leukocytosis. Mild anemia with hemoglobin -12.4 and hematocrit- 39.5. Electrolytes were stable. Glucose- 135. Pro BNP -1753. Troponin was negative. EKG revealed normal sinus rhythm. No acute ischemic changes. The patient was admitted for recurrent falls and altered level of consciousness for further management. ADMITTING DIAGNOSES: 1. Chest pain, rule out acute coronary syndrome. 2. Left rib fracture. 3. Altered level of consciousness. 4. Falling episode. 5. Hypertension. 6. Diabetes. 7. Colon cancer, status post resection. Hospital Course: The patient was admitted on telemetry floor. Serial troponin were negative. Cardiology consult was requested. Echocardiogram revealed preserved ejection fraction of 60% to 65%, mild to moderate mitral regurgitation and mild aortic regurgitation. Aspirin and statin were continued. Blood pressure was stable. The patient was ruled out for acute IA by negative serial troponin and normal EKG. Rib series revealed acute left 9, 10, and 11 rib fracture. Chest pain was noncardiac, likely of musculoskeletal origin related to acute left rib fracture and possible costochondritis. Pain management was addressed and managed. controlled. The patient was on gentle IV fluid hydration. Mental status was slowly improving. Neurologist and psychiatrist clsoely followed. Per neurologist, the patient had advanced vascular dementia with delirium and progressive cognitive loss with poor verbal output. He recommended to hold all unnecessary medications, continue PT and OT therapy and started the patient on Depakote and trazodone. EEG revealed evidence of an epileptiform activity in left temporal area. Renal ultrasound was done due to renal insufficiency and revealed no hydronephrosis, likely chronic renal insufficiency since creatinine did not change with IV hydration. The patient was working with physical and occupational therapists. Fall precaution were maintained. Bowel regimen was instituted and intensified. Constipation resolved, patient had bowel movement. Bedside swallow evaluation revealed dysphagia, and aspiration risk. Family desired diet for quality of life. Diet started as per speech therapist recommendation for quality of life with 1 to 1 feeding, strict aspiration and reflux precautions Daughter was advised to buy thickener and add it to all thin liquids. Daughter appealed to Medicare for the discharge decision. The patient stayed in the hospital until Medicare decision was received on 12/26/2016, and Medicare was in agreement with decision to discharge the patient. Psychiatrist seen and evaluated the patient and optimized psychiatric medication regimen. She recommended no benzodiazepines. The patient's mental status improved. Daughter decided to take the patient home with the hospice services. Daughter had previously selected particular hospice. billing services manager communicated with the hospice services. The patient was stable for discharge home with the hospice services. FINAL DIAGNOSES: 1. Acute toxic metabolic encephalopathy on chronic vascular dementia with delirium. 2. Advanced vascular dementia. 3. Status post non-syncopal fall. 4. Musculoskeletal chest pain. 5. Acute left rib fractures, 9, 10, and 11. 6. Possible costochondritis. 7. Coronary artery disease with history of coronary artery bypass graft. 8. Hypertension history. 9. Colon cancer, status post resection. 10. [id number] mitral regurgitation. 11. Anemia. 12. Progressive cognitive loss. 13. Constipation. 14. Chronic renal insufficiency. 15. Dysphagia with aspiration risk. DISCHARGE MEDICATIONS: See medication reconciliation list. Discharge Instructions: The patient was discharged home with the hospice services. Jeanine Najera M.D. [facility]: CALEB JOB#: [id number] CC: DENNISE
== END 2016-12-26 14:35 | disposition hospice, home (50) | DRG 92 ==
LOC: EDBD 15:30 → EMR 16:50 → 2E 17:05 → EDBEDREQ 17:28 → 4E 12-21 14:43
DX: G92 Toxic encephalopathy (principal); F01.51 Vascular dementia, unspecified severity, with behavioral disturbance; S22.42XA Multiple fractures of ribs, left side, initial encounter for closed fracture; E11.22 Type 2 diabetes mellitus with diabetic chronic kidney disease; I48.0 Paroxysmal atrial fibrillation; C18.9 Malignant neoplasm of colon, unspecified; F05 Delirium due to known physiological condition; M94.0 Chondrocostal junction syndrome [Tietze]; R13.10 Dysphagia, unspecified; D64.9 Anemia, unspecified; W19.XXXA Unspecified fall, initial encounter; Z90.49 Acquired absence of other specified parts of digestive tract; I35.1 Nonrheumatic aortic (valve) insufficiency; I34.0 Nonrheumatic mitral (valve) insufficiency; R07.89 Other chest pain; I25.10 Atherosclerotic heart disease of native coronary artery without angina pectoris; Z95.1 Presence of aortocoronary bypass graft; K59.00 Constipation, unspecified; N18.9 Chronic kidney disease, unspecified; E03.9 Hypothyroidism, unspecified; N40.0 Benign prostatic hyperplasia without lower urinary tract symptoms; I13.10 Hypertensive heart and chronic kidney disease without heart failure, with stage 1 through stage 4 chronic kidney disease, or unspecified chronic kidney disease; E78.5 Hyperlipidemia, unspecified; G47.30 Sleep apnea, unspecified
CPT/HCPCS: 36415; 70450; 71010; 71110; 74000; 76775; 80048; 80053; 80061; 82140; 82306; 82378; 82550; 82607; 82746; 83735; 83880; 84100; 84443; 84446; 84484; 85025; 85610; 85651; 85730; 86039; 86140; 86592; 93005; 93306; 94664; 95819; 99285; J2405